=== PATIENT | male | born 1945 | race Caucasian/White ===

== ENCOUNTER 2017-10-05 09:36 | Emergency (ER) | payer MEDICARE ==
[~2017-10-05] VITALS: Ht 188 cm; Wt 131.8 kg
[~2017-10-05 09:36] MED LIST: BAYER CHEWABLE81 MG PO; BUPROPION XL300 MG PO; CITRUCEL500 MG PO; LISINOPRIL10 MG NG; PROTONIX40 MG PO; SYMBICORT 80-10.2 GM INH; TENORMIN25 MG PO; VENTOLIN HFA18 GM INH; ZANTAC150 MG PO
[2017-10-05 09:54] VITALS: Ht 188 cm; Wt 131.8 kg
[2017-10-05] MEDS ORDERED: FAMOTIDINE10 MG PO (09:56)
[2017-10-05] MEDS ORDERED: GLUCOPHAGE1000 MG PO (09:57)
[2017-10-05 10:56] LABS: BASOPHILS 1.3 % (0-2); EOSINOPHILS 2.8 % (0-7); HEMATOCRIT 43.7 % (42.0-54.0); HEMOGLOBIN 14.7 g/dL (13.5-17.5); IMMATURE GRANULOCYTES 1.3 % (0-5); LYMPHOCYTES 29.5 % (15-50); MCH 30.6 pg (26.0-34.0); MCHC 33.6 g/dL (31.0-37.0); MCV 90.9 fL (80.0-100.0); MEAN PLATELET VOLUME 9.6 fL (7.4-10.4); MONOCYTES 8.5 % (2-11); NEUTROPHILS 56.6 % (40-80); PLATELET COUNT 189 10x3/uL (130-400); RBC 4.81 10x6/uL (4.20-6.10); RDW 13.3 % (11.5-14.5); WBC 9.6 10x3/uL (4.8-10.8)
[2017-10-05 11:03] LABS: APTT 24.8 SECONDS (22.8-39.4); INR 1.01 (0.85-1.17); PROTIME 12.9 SECONDS (11.6-15.0)
[2017-10-05 11:04] LABS: D-DIMER-QUANTITATIVE < 0.27 ug/mLFEU (0.20-0.54)
[2017-10-05 11:33] LABS: ALBUMIN 3.8 g/dL (3.4-5.0); ALKALINE PHOSPHATASE 113 U/L (46-116); ALT (SGPT) 39 U/L (10-68); BILIRUBIN - TOTAL 0.67 mg/dL (0.2-1.3); CALC OSMOLALITY 281 mosm/kg (275-300); CALCIUM 9.2 mg/dL (8.5-10.1); CARBON DIOXIDE 25.6 mmol/L (21.0-32.0); CHLORIDE - SERUM 103 mmol/L (98-107); GLUCOSE 174 mg/dL (74-106); POTASSIUM - SERUM 4.4 mmol/L (3.5-5.1); PROTEIN - SERUM 7.1 g/dL (6.4-8.2); SODIUM 139 mmol/L (136-145); UREA NITROGEN 12 mg/dL (7-18); eGFR NON AFRICAN AMERICAN 78 mL/min (90-120)
[2017-10-05 11:45] LABS: CKMB 1.7 U/L (0.0-3.6); CREATINE KINASE 62 UL (21-232); PRO BNP 51 pg/mL (0-125)
[2017-10-05 11:46] LABS: TROPONIN-I < 0.017 ng/mL (0.000-0.060)
[2017-10-05 14:28] VITALS: BP 129/75
[2017-11-14] MEDS ORDERED: ASPIRIN81 MG PO (11:48)
[2017-11-14] MEDS ORDERED: FLOMAX0.4 MG PO (11:48)
== END 2017-10-05 14:28 | disposition home or self-care (01) ==
LOC: D.ER 09:36
PROVIDERS: Family Medicine
DX: S46.912A Strain of unspecified muscle, fascia and tendon at shoulder and upper arm level, left arm, initial encounter (principal); X58.XXXA Exposure to other specified factors, initial encounter; Y93.89 Activity, other specified; Y92.019 Unspecified place in single-family (private) house as the place of occurrence of the external cause; M25.512 Pain in left shoulder; R42 Dizziness and giddiness; F17.200 Nicotine dependence, unspecified, uncomplicated

== ENCOUNTER → 2017-11-14 11:16 | Outpatient (CLI) | payer MEDICARE ==
[~2017-11-14] VITALS: Ht 188 cm; Wt 131.8 kg
--- NOTE | ~2017-11-14 | HEMODYNAMI ---
PATIENT:ABEL MARRERO MEDICAL RECORD: [id number] : 43 LOCATION:[facility] ADMISSION DATE: 11/14/17 Generatedon:11/14/201714:36 Patient name: ABEL MARRERO Patient #: [id number] SSN: DO B: 1945 Date of study: 11/14/2017 Page: Of Hemodynamic Procedure Report Patient Data Patient Demographics Procedure consent was obtained First Name: ABEL Gender: Male Last Name: ELIDA : 1945 Middle Initial: EDWARD Age: 72 year(s) Patient #: [id number] Race: Additional ID: [id number] Contact details Address: [address] [address] State: [place] City: [place] Zip code: [address] Past Medical History Allergies Allergen Reaction Date Comments Reported Penicillins 11/14/2017 Admission Admission Data Admission Date: 11/14/2017 Admission Time: 11:16 Procedure Procedure Types Cath Procedure Diagnostic Procedure LHC LHC w/Coronaries Sedation Charges Moderate Sedation up to 15 minutes Procedure Description Procedure Date Procedure Date: 11/14/2017 Procedure Start Time: 14:23 Procedure End Time: 14:33 Procedure Staff Name Function Johnathan Palomares MD Performing Physician Damaris Cuadra RT Scrub Raffy Hernandez RN Nurse Tata Marion RT Monitor Procedure Data Cath Procedure Fluoroscopy Diagnostic fluoroscopy Total fluoroscopy Time: 2.1 time: 2.1 min min Diagnostic fluoroscopy Total fluoroscopy dose: 872 dose: 872 mGy mGy Contrast Material Contrast Material Type Amount (ml) Isovue 300 62 Entry Location Entry Primary Successful Side Size Upsize Upsize Entry Closure Gilbert ccessful Closure Location (Fr) 1 (Fr) 2 (Fr) Remarks Device Remarks Radial Right 6 Fr Mechanical artery Short Compression Estimated blood loss: 5 ml Diagnostic catheters Device Type Used For End Catheter Placement DIAGNOSTIC Dieter 110cm Multi-vessel 5Fr catheter ([id number]) Angiography Procedure Complications No complications Procedure Medications Medication Administration Route Dosage 0.9% NaCl I.V. 100 ml/hr Oxygen etCO2 Nasal cannula 2 l/min Heparin Flush Bag added to field 2 bags (1000units/500ml NS) Lidocaine 2% added to field 20 Radial Cocktail added to field 1 syringe (Verapomil 2mg/Nitro 400mcg/Heparin 1500units) Versed I.V. 2 mg Fentanyl I.V. 100 mcg Radial Cocktail I.A. 1 syringe (Verapomil 2mg/Nitro 400mcg/Heparin 1500units) Hemodynamics Rest Heart Rate: 90 (bpm) Pressure Samples Time Site Value (mmHg) Purpose Heart Use Rate(bpm) 14:26 LV 112/-10,0 Snapshot 95 14:27 LV 111/-13,-5 Pullback 84 14:27 AO 93/62(75) Pullback 84 Gradients Valve Time Site 1 Site 2 Mean SEP/DFP Peak To Heart Use (mmHg) (sec/min) Peak Rate (mmHg) (bpm) Aortic 14:27 LV AO 14 6 18 84 111/-13,-5 93/62(75) Calculations Valve P-P Mean Valve Index Valve Source Name Gradient Area Flow (cm2) Aortic 18 14 18 14 Snapshots Pre Cath Intra NCS Post Cath Vital Signs Time Heart Resp SPO2 etCO2 NIBP Rhythm Pain Sedation Rate (ipm) (%) (mmHg) (mmHg) Status Level (bpm) 14:07:06 88 30 96 28.6 123/82(96) NSR 0 (11) 10(A) , No pain 14:11:51 86 30 96 29.3 122/81(99) NSR 0 (11) 10(A) , No pain 14:16:50 106 29 95 33.9 Measuring NSR 0 (11) 10(A) , No pain 14:17:41 87 24 96 24.8 123/79(96) NSR 0 (11) 10(A) , No pain 14:22:26 85 28 94 33.9 124/81(99) NSR 0 (11) 9(A) , No pain 14:27:08 91 28 93 31.6 109/72(94) NSR 0 (11) 9(A) , No pain 14:31:49 87 30 95 30.8 115/77(92) NSR 0 (11) 10(A) , No pain Medications Time Medication Route Dose Verified Delivered Reason Notes Effectiveness by by 14:06:43 0.9% NaCl I.V. 100 Raffy Raffy Per ml/hr David Hernandez physician RN RN 14:06:52 Oxygen etCO2 2 l/min Raffy Raffy Per Nasal David Hernandez physician cannula RN RN 14:07:05 Heparin Flush added 2 bags Raffy Raffy used for Bag to Lorigan David procedure (1000units/500ml field RN RN NS) 14:07:15 Lidocaine 2% added 20ml Raffy Raffy for local to vial Lorigan Lorigan anesthetic field RN RN 14:07:27 Radial Cocktail added 1 Raffy Raffy used for (Verapomil to syringe Lorigan Lorigan procedure 2mg/Nitro field RN RN 400mcg/Hepari 14:16:06 Versed I.V. 2 mg Raffy Raffy for sedation David Hernandez RN RN 14:16:17 Fentanyl I.V. 100 mcg Raffy Raffy for sedation David Hernandez RN RN 14:24:02 Radial Cocktail I.A. 1 Raffy Johnathan for (Verapomil syringe David Palomares MD vasodilation 2mg/Nitro RN 400mcg/Hepari Procedure Log Time Note 13:35:11 Raffy Hernandez RN sent for patient. Start room use. 13:56:23 Diagnostic Cath Status : Elective 13:57:42 Time tracking: Regular hours (M-F 7:00 - 5:00) 13:57:56 Plan of Care:Hemodynamics will remain stable., Cardiac rhythm will remain stable., Comfort level will be maintained., Respiratory function will remain adequate., Patient/ family verbilizes understanding of procedure., Procedure tolerated without complication., Recovers from procedure without complications.. 13:59:14 Patient received from Pre/Post Procedure Room to CCL 1 Alert and oriented. Tansferred to table in Supine position. 13:59:34 Warm blankets applied, and alyssa hugger turned on for patient comfort. 13:59:36 Correct patient and procedure confirmed by team. 13:59:41 Signed procedure consent form obtained from patient. 14:00:21 ECG and BP/O2 sat monitors applied to patient. 14:00:24 Vital chart was started 14:02:16 Baseline sample Acquired. 14:03:05 Baseline sample Acquired. 14:03:35 Rhythm: sinus rhythm 14:03:46 Full Disclosure recording started 14:04:13 H&P Date Dictated: 11/14/2017 New H&P dictated by physician.. 14:04:19 Pre-procedure instructions explained to patient. 14:04:21 Pre-op teaching completed and patient verbalized understanding. 14:04:23 Family in waiting room. 14:04:27 Patient NPO since Breakfast. 14:04:33 Patient allergic to Penicillins 14:04:36 Is the patient allergic to Iodine/contrast media? No. 14:04:39 Is patient on blood thinner?No 14:04:41 Patient diabetic? Yes. 14:04:43 If diabetic: On Metformin? Yes 14:04:49 If on Metformin: Last Dose? 11/12/2017 14:04:52 ----Pre-sedation anethsthesia assessment.---- 14:04:55 Previous problem with sedation/anesthesia? No ? 14:04:57 Snore? Yes 14:04:59 Sleep apnea? Yes 14:05:01 Deviated septum? No 14:05:02 Opens mouth fully? Yes 14:05:03 Sticks out tongue? Yes 14:05:07 Airway obstruction? No ? 14:05:14 Dentures? Yes OUT 14:05:20 Pre procedure: right dorsailis pedis pulse 1+ Palpable, but thready & weak; easily obliterated 14:05:26 Patient pain scale 0/10 ?. 14:05:46 IV patent on arrival in left forearm with 0.9% NaCl at [facility]. 14:06:43 0.9% NaCl 100 ml/hr I.V. was administered by Raffy Hernandez RN; Per physician; 14:06:52 Oxygen 2 l/min etCO2 Nasal cannula was administered by Raffy Hernandez RN; Per physician; 14:07:05 Heparin Flush Bag (1000units/500ml NS) 2 bags added to field was administered by Raffy Hernandez RN; used for procedure; 14:07:15 Lidocaine 2% 20ml vial added to field was administered by Raffy Hernandez RN; for local anesthetic; 14:07:27 Radial Cocktail (Verapomil 2mg/Nitro 400mcg/Heparin 1500units) 1 syringe added to field was administered by Raffy Hernandez RN; used for procedure; 14:14:42 Lab results completed and on chart. 14:14:47 Right Radial & Right Groin area was prepped with chlora-prep and draped in sterile fashion 14:14:48 Alarms reviewed by R. N. 14:14:49 Sharps counted by scrub and verified by R.N. 14:14:51 --------ALL STOP TIME OUT------ 14:14:52 Final Timeout: patient, procedure, and site verified with staff and physician. All members of the team are in agreement. 14:14:56 Right Radial & Right Groin site verified by team. 14:14:59 Physical assessment completed. ASA score P 2 - A patient with mild systemic disease as per Johnathan Palomares MD. 14:15:02 Sedation plan: IV Moderate Sedation Medication:Versed, Fentanyl 14:16:06 Versed 2 mg I.V. was administered by Raffy Hernandez RN; for sedation; 14:16:16 Fentanyl 100 mcg I.V. was administered by Raffy Hernandez RN; for sedation; 14:21:58 Procedure started. 14:23:10 Local anesthetic to right radial artery with Lidocaine 2% by Johnathan Palomares MD.INITIAL ACCESS ONLY 14:23:53 A 6 Fr Short sheath was inserted into the Right Radial artery 14:24:02 Radial Cocktail (Verapomil 2mg/Nitro 400mcg/Heparin 1500units) 1 syringe I.A. was administered by Johnathan Palomares MD; for vasodilation; 14:25:03 Use device set Radial Dx or PCI 14:25:08 ACIST Syringe (77381) opened to sterile field. 14:25:09 DIAGNOSTIC WIRE .035 260cm J wire (671519) opened to sterile field. 14:25:09 Bag Decanter () opened to sterile field. 14:25:09 Medline Cath Pack ([id number]) opened to sterile field. 14:25:10 ACIST Manifold (04301) opened to sterile field. 14:25:10 ACIST Hand Control (81321) opened to sterile field. 14:25:11 Tegaderm 4 x 4 (1626W) opened to sterile field. 14:25:12 MBrace Wrist Support ([id number]) opened to sterile field. 14:25:13 SHEATH 6Fr Prelude Radial ([id number]) opened to sterile field. 14:25:18 A DIAGNOSTIC Dieter 110cm 5Fr catheter (337663) was advanced over the wire and used for Multi-vessel Angiography. 14:26:25 LV hemodynamics recorded. 14::29 LV gram done using LLOYD 14::31 Injector settings: Ml/sec: 5, Volume: 15, 14:26:48 EF : 55 % 14:27:34 LCA angiography performed. 14:27:37 Injector settings: Ml/sec: 3, Volume: 6, 14:29:31 RCA angiography performed. 14::37 Injector settings: Ml/sec: 3, Volume: 6, 14:30:59 Catheter removed. 14:31:35 TR BAND Standard ([id number]) opened to sterile field. 14:31:52 Sheath removed intact; hemostasis achieved with Mechanical Compression to the Right Radial artery. 14:31:55 Procedure ended.(Physican Out) 14:32:14 Fluoroscopy time 02.10 minutes. 14:32:19 Fluoroscopy dose: 872 mGy 14:32:19 Flurop Dose total: 872 14:32:23 Contrast amount:Isovue 300 62ml. 14:32:25 Sharps counted by scrub and verified by R.N. 14:32:28 TR band inflated with 12cc of air. 14:32:30 Insertion/operative site no bleeding no hematoma. 14:32:34 Post right radial artery:stable 14:32:35 Post Procedure Pulses reassessed and unchanged 14:32:38 Post procedure rhythm: unchanged. 14:32:41 Estimated blood loss: 5 ml 14:32:43 Patient needs reinforcement of post procedure teaching. 14:32:43 Post procedure instruction explained to patient.Patient verbalizes understanding. 14:32:58 Procedure type changed to Cath procedure, Diagnostic procedure, LHC, LHC w/Coronaries, Sedation Charges, Moderate Sedation up to 15 minutes 14:33:01 Procedure and supply charges have been captured, reviewed, submitted and are correct. 14:33:09 Procedure Complication : No complications 14:33:12 See physician's report for complete and final results. 14:33:12 Vital chart was stopped 14:33:32 Report given to Pre/Post Procedure Room. 14:33:38 Patient transfered to Pre/Post Procedure Room with Stretcher. 14:33:41 Full Disclosure recording stopped 14:33:41 Procedure ended. 14:33:44 End room use (Document Last) Device Usage Item Name Manufacture Quantity Catalog Number Hospital Part Current M inimal Lot# / Charge Number Stock Stock Serial# Code ACIST Syringe Acist 1 55818 998981 993618 187887 2 0 (10087) [employer] Medline Cath Cardinal 1 [id number] 542133 79028 967581 5 Pack Health ([id number]) Bag Decanter Microtek 1 2001S 671261 96252 490223 5 (2001S) Medical Inc. DIAGNOSTIC WIRE [place] 1 063542 896610 244733 605924 3 0 .035 260cm J wire (871992) ACIST Hand Acist 1 34084 328926 399228 306291 5 Control (49497) Medical Systems Inc ACIST Manifold Acist 1 57440 349219 103229 814045 5 (92379) Medical Systems Inc Tegaderm 4 x 4 3M 1 1626W 281479 722776 997190 5 (1626W) MBrace Wrist Advanced 1 140-0250-00 000315 47065 466694 5 Support Vascular ([id number]) Dynamics SHEATH 6Fr Merit 1 [id number] 023938 485367 601787 5 Prelude Radial Medical ([id number]) DIAGNOSTIC Terumo 1 87-6125 467573 289303 079965 5 Dieter 110cm 5Fr catheter (483545) TR BAND Terumo 1 [id number] 894829 548248 735758 4 0 Standard ([id number]) Signature Audit [place] Stage Time Signature Unsigned Intra-Procedure 11/14/2017 Tata Marion 2:36:10 PM RT(R) Signatures Monitor : Tata Marion RT Signature : Date : Time : [facility] [address] [place] [address]
[~2017-11-14 11:16] MED LIST changes: +ASPIRIN81 MG PO; +FAMOTIDINE10 MG PO; +FLOMAX0.4 MG PO; +GLUCOPHAGE1000 MG PO
[2017-11-14 11:59] VITALS: BP 163/95; Ht 188 cm; Wt 131.8 kg
[2017-11-14 12:02] LABS: BASOPHILS 1.1 % (0-2); EOSINOPHILS 3.8 % (0-7); HEMATOCRIT 44.9 % (42.0-54.0); HEMOGLOBIN 15.4 g/dL (13.5-17.5); IMMATURE GRANULOCYTES 1.1 % (0-5); LYMPHOCYTES 28.9 % (15-50); MCH 30.8 pg (26.0-34.0); MCHC 34.3 g/dL (31.0-37.0); MCV 89.8 fL (80.0-100.0); MEAN PLATELET VOLUME 9.6 fL (7.4-10.4); MONOCYTES 7.9 % (2-11); NEUTROPHILS 57.2 % (40-80); PLATELET COUNT 193 10x3/uL (130-400); RDW 13.4 % (11.5-14.5); WBC 10.1 10x3/uL (4.8-10.8)
[2017-11-14 12:12] LABS: CALC OSMOLALITY 279 mosm/kg (275-300); CALCIUM 8.2 mg/dL (8.5-10.1); CARBON DIOXIDE 28.2 mmol/L (21.0-32.0); CHLORIDE - SERUM 102 mmol/L (98-107); CREATININE - SERUM 0.9 mg/dL (0.6-1.3); GLUCOSE 148 mg/dL (74-106); SODIUM 139 mmol/L (136-145); UREA NITROGEN 10 mg/dL (7-18); eGFR NON AFRICAN AMERICAN 88 mL/min (90-120)
== END | disposition home or self-care (01) ==
LOC: D.CATH 11:16
PROVIDERS: Internal Medicine Cardiovascular Disease
DX: I25.110 Atherosclerotic heart disease of native coronary artery with unstable angina pectoris (principal)

== ENCOUNTER 2019-01-24 07:27 | Inpatient (IN) | payer MEDICARE ==
[2019-01-24] VITALS (44 sets, daily range): BP systolic 85–138; BP diastolic 47–621; BMI 36.0
[~2019-01-24] VITALS: Ht 188 cm; Wt 127.1 kg
--- NOTE | ~2019-01-24 | HEMODYNAMI ---
PATIENT:ABEL MARRERO MEDICAL RECORD: [id number] : 43 [id number] ADMISSION DATE: 01/24/19 Generatedon:01/24/20199:28 Patient name: ABEL MARRERO Patient #: [id number] SSN: [id number] : 1945 Date of study: 01/24/2019 Page: Of Hemodynamic Procedure Report Patient Data Patient Demographics Procedure consent was obtained First Name: ABEL Gender: Male Last Name: ELIDA : 1945 Middle Initial: EDWARD Age: 73 year(s) Patient #: [id number] Race: SSN: [id number] Additional ID: [id number] Contact details Address: [address] [place] [address] State: [place] City: [place] Zip code: [address] Past Medical History Allergies Allergen Reaction Date Comments Reported Penicillins 11/14/2017 Admission Admission Data Admission Date: 01/24/2019 Admission Time: 7:40 Arrival Date: 01/24/2019 Arrival Time: 7:27 Admit Source: Emergency Insurance Payor: Private department health insurance, Medicare Room #: D.CV05 [facility] #: [id number] Height (in.): 74.02 BSA: 2.51 (m2) Height (cm.): 188 BMI: 35.93 (kg/m2) Weight (lbs.): 279.99 Weight (kg.): 127 Lab Results Lab Result Date: 01/24/2019 Lab Result Time: 0:00 Biochemistry Name Units Result Min Max BUN mg/dl 17 --(---*)-- 7 18 Creatinine mg/dl 1.2 --(---*)-- 0.6 1.3 eGFR ml/min 63 *-(----)-- 90 120 NONAFRICAN Troponin l ng/ml 77.941 --(----)-* 0 0.06 CBC Name Units Result Min Max Hemoglobin g/dl 15.4 --(-*--)-- 13.5 17.5 Procedure Procedure Types Cath Procedure Diagnostic Procedure C [facility] w/Coronaries Temporary Pacemaker Intra-Aortic Balloon Pump Sedation Charges Moderate Sedation up to 45 minutes PCI Procedure AMI/SVG/PRINT BUYER PTCA or Stent AMI-BMS/BHARTI Initial Coronary Thrombectomy Initial Procedure Description Procedure Date Procedure Date: 01/24/2019 Procedure Start Time: 8:02 Procedure End Time: 9:02 Procedure Staff Name Function Salvador Monique MD Performing Physician Tata Marion RT Monitor Issac Anthony RT Scrub Kary Puckett RT Scrub Dianne Caballero RN Nurse Procedure Data Cath Procedure Fluoroscopy Diagnostic fluoroscopy Total fluoroscopy Time: 14 time: 14 min min Diagnostic fluoroscopy Total fluoroscopy dose: dose: 1958 mGy 1958 mGy Contrast Material Contrast Material Type Amount (ml) Isovue 300 196 Entry Location Entry Primary Successful Side Size Upsize Upsize Entry Closure Gilbert ccessful Closure Location (Fr) 1 (Fr) 2 (Fr) Remarks Device Remarks Radial Right 6 Fr Mechanical artery Short Compression Femoral Right 6 Fr Sheath vein Short sutured in place Femoral Right 7 Fr 8 Fr Sheath artery Short sutured in place Estimated blood loss: 5 ml Diagnostic catheters Device Type Used For End Catheter Placement DIAGNOSTIC Mystic 110cm 5 Multi-vessel Fr catheter ([id number]) Angiography Procedure Complications No complications Procedure Medications Medication Administration Route Dosage 0.9% NaCl I.V. 100 ml/hr Oxygen etCO2 Nasal cannula 2 l/min Lidocaine 2% added to field 20 Heparin Flush Bag added to field 2 bags (1000units/500ml NS) Benadryl I.V. 50 mg Versed I.V. 2 mg Fentanyl I.V. 100 mcg Radial Cocktail added to field 1 syringe (Verapamil 2mg/Nitro 400mcg/Heparin 1500units) Heparin Bolus I.V. 5000 units Integrilin (Bolus I.V. 11.3 ml 2mg/ml) Integrilin (Bolus I.V. 11.3 ml 2mg/ml) Fentanyl I.V. 50 mcg Integrilin Drip I.V. drip 100 ml/hr (75mg/100ml) Integrilin (Bolus wasted 7.4 ml 2mg/ml) Nitroglycerin IC/IA I.C. 200 mcg Fentanyl I.V. 50 mcg Versed I.V. 1 mg Heparin Drip I.V. drip 1000 units/hr (96929hoalh/250 D5W) Plavix P.O. 600 mg Mechanical Ventricular Support IABP: Inserted after PCI has begun Hemodynamics Rest BSA: 2.51 (m2) HGB: 15.4 (g/dl) O2 Consumption: Estimated: 317.76 (ml/min) O2 Co nsumption indexed: Estimated:126.6 (ml/min/m) Heart Rate: 100 (bpm) Pressure Samples Time Site Value (mmHg) Purpose Heart Use Rate(bpm) 8:04 LV 62/38,44 Snapshot 87 Snapshots Pre Cath Intra NCS Post Cath Vital Signs Time Heart Resp SPO2 etCO2 NIBP Rhythm Pain Status Sedation Rate (ipm) (%) (mmHg) (mmHg) Level (bpm) 7:52:24 94 19 98 22 102/48(88) NSR w/ ST 2 (11) , 10(A) Elevation Uncomfortable 7:56:36 93 16 98 21.7 94/66(77) NSR w/ ST 2 (11) , 10(A) Elevation Uncomfortable 8:00:50 89 18 97 25.5 89/57(67) NSR w/ ST 0 (11) , No 9(A) Elevation pain 8:05:02 87 16 98 27.8 86/58(71) NSR w/ ST 0 (11) , No 9(A) Elevation pain 8:09:16 88 18 97 13.5 79/49(61) NSR w/ ST 0 (11) , No 9(A) Elevation pain 8:13:26 86 17 98 22.5 76/49(60) NSR w/ ST 0 (11) , No 9(A) Elevation pain 8:17:38 94 16 97 23.3 72/43(50) NSR w/ ST 3 (11) , 10(A) Elevation Tolerable 8:21:44 84 16 98 13.5 75/50(61) NSR w/ ST 0 (11) , No 9(A) Elevation pain 8:25:52 82 18 97 28.5 76/54(64) NSR w/ ST 0 (11) , No 9(A) Elevation pain 8:30:00 83 18 96 15 78/49(62) NSR w/ ST 0 (11) , No 9(A) Elevation pain 8:34:07 86 18 98 14.2 75/53(59) NSR w/ ST 4 (11) , 10(A) Elevation Distressing 8:38:15 83 18 97 14.2 82/53(67) NSR w/ ST 0 (11) , No 9(A) Elevation pain 8:42:27 80 16 98 16 78/49(63) NSR w/ ST 0 (11) , No 9(A) Elevation pain 8:46:37 81 30 96 13.5 79/50(62) NSR w/ ST 0 (11) , No 9(A) Elevation pain 8:50:47 79 30 98 5.2 81/50(62) NSR w/ ST 0 (11) , No 9(A) Elevation pain 8:55:01 81 34 96 13.5 80/42(50) NSR w/ ST 0 (11) , No 10(A) Elevation pain 8:59:10 79 16 96 27 87/49(61) NSR w/ ST 0 (11) , No 10(A) Elevation pain 9:03:27 80 31 96 18 73/42(52) NSR w/ ST 0 (11) , No 10(A) Elevation pain 9:07:32 77 29 96 27 76/52(65) NSR w/ ST 0 (11) , No 10(A) Elevation pain 9:11:47 76 32 96 16.5 66/33(49) NSR w/ ST 0 (11) , No 10(A) Elevation pain 9:16:45 100 27 95 12.7 Measuring NSR w/ ST 0 (11) , No 10(A) Elevation pain 9:16:47 100 24 94 12 61/44(57) NSR w/ ST 0 (11) , No 10(A) Elevation pain 9:20:53 82 35 92 11.2 78/42(52) NSR w/ ST 0 (11) , No 10(A) Elevation pain 9:25:01 91 0 74/54(63) NSR w/ ST 0 (11) , No 10(A) Elevation pain Medications Time Medication Route Dose Verified Delivered Reason Not es Effectiveness by by 7:56:09 0.9% NaCl I.V. 100 Salvador Dianne used for ml/hr Kayden Caballero county agent 7:56:17 Oxygen etCO2 2 l/min Salvador Dianne used for Nasal Kayden Caballero procedure cannula RN 7:56:22 Lidocaine 2% added 20ml Salvador Franco for local to vial Kayden Monique MD anesthetic field 7:56:27 Heparin Flush added 2 bags Salvador Franco used for Bag to Kayden Monique MD procedure (1000units/500ml field NS) 7:56:31 Benadryl I.V. 50 mg Salvador Dianne used for Kayden Caballero county agent 7:56:39 Versed I.V. 2 mg Salvador Dianne for sedation Kayden Caballero RN 7:56:44 Fentanyl I.V. 100 mcg Salvador Dianne for sedation Kayden Caballero RN 7:58:00 Radial Cocktail added 1 Salvador Franco used for (Verapamil to syringe Kayden Monique MD procedure 2mg/Nitro field 400mcg/Heparin 1500units) 8:06:03 Integrilin I.V. 11.3 ml Salvador Dianne for (Bolus 2mg/ml) Kayden Caballero antiplatelet RN therapy 8:09:50 Heparin Bolus I.V. 5000 Salvador Dianne for marino ified units Kayden Caballero anticoagulation with Dr. NABEEL Monique 8:10:16 Integrilin I.V. 11.3 ml Salvador Dianne for (Bolus 2mg/ml) Kayden Caballero antiplatelet RN therapy 8:10:41 Integrilin wasted 7.4 ml Salvador Dianne for (Bolus 2mg/ml) Kayden Caballero antiplatelet RN therapy 8:18:10 Fentanyl I.V. 50 mcg Salvador Dianne for sedation aKyden Caballero RN 8:28:56 Nitroglycerin I.C. 200 mcg Salvador Salvador for IC/IA Kayden Monique MD vasodilation 8:32:14 Integrilin Drip I.V. 100 Salvador Dianne for (75mg/100ml) drip ml/hr Kayden Caballero antiplatelet RN therapy 8:36:01 Fentanyl I.V. 50 mcg Salvador Dianne for sedation Kayden Caballero RN 8:36:19 Versed I.V. 1 mg Salvador Dianne for sedation Kayden Caballero RN 8:49:01 Heparin Drip I.V. 1000 Salvador jorge marino ified (89814omzmc/250 drip units/hr Kayden Caballero anticoagulation with Dr. Frank) NABEEL Monique 8:54:40 Plavix P.O. 600 mg Salvador Dean for Kayden Caballero antiplatelet RN therapy Procedure Log Time Note 7:40:38 Dianne Caballero RN sent for patient. Start room use. 7:50:39 Time tracking: Regular hours (M-F 7:00 - 5:00) 7:50:43 Plan of Care:Hemodynamics will remain stable., Cardiac rhythm will remain stable., Comfort level will be maintained., Respiratory function will remain adequate., Patient/ family verbilizes understanding of procedure., Procedure tolerated without complication., Recovers from procedure without complications.. 7:51:00 Risk of Mortality: 27.5 7:51:00 Risk of SOFIA: 22.0 7:51:00 Risk of blood transfusion: 16.6 7:51:00 Patient received from ED to CCL 1 Alert and oriented. Tansferred to table in Supine position. 7:51:02 Signed procedure consent form obtained from patient. 7:51:03 Warm blankets applied, and alyssa hugger turned on for patient comfort. 7:51:04 Correct patient and procedure confirmed by team. 7:51:04 ECG and BP/O2 sat monitors applied to patient. 7:51:05 Vital chart was started 7:51:08 Baseline sample Acquired. 7:51:15 Full Disclosure recording started 7:51:20 H&P Date Dictated: 01/24/2019 ER History on chart., New H&P dictated by physician.. 7:51:22 Pre-procedure instructions explained to patient. 7:51:22 Pre-op teaching completed and patient verbalized understanding. 7:51:24 Family in waiting room. 7:51:31 Patient NPO since Midnight. 7:51:35 Is the patient allergic to Iodine/contrast media? No. 7:51:36 Was the patient premedicated? No 7:51:38 Is patient on blood thinner?No 7:51:56 Patient diabetic? Yes. 7:51:59 If diabetic: On Metformin? Yes 7:52:03 If on Metformin: Last Dose? 01/23/2019 7:52:06 Previous problem with sedation/anesthesia? No ? 7:52:09 Snore? Yes 7:52:09 Sleep apnea? Yes 7:52:10 Deviated septum? No 7:52:13 Opens mouth fully? Yes 7:52:14 Sticks out tongue? Yes 7:52:18 Airway obstruction? No ? 7:52:22 Dentures? Yes out 7:52:26 Pre procedure: right dorsailis pedis pulse 2+ Normal; easily identifiable; not easily obliterated 7:52:28 Pre procedure: left dorsailis pedis pulse 2+ Normal; easily identifiable; not easily obliterated 7:52:30 Patient pain scale 0/10 ?. 7:52:40 IV patent on arrival in right antecubital with 0.9% NaCl at [facility]. 7:52:46 Lab results pending. 7:52:52 Right Radial & Right Groin area was prepped with chlora-prep and draped in sterile fashion 7:52:53 Alarms reviewed by R. N. 7:52:53 Sharps counted by scrub and verified by R.N. 7:52:56 Physician arrived 7:52:56 --------ALL STOP TIME OUT------ 7:52:57 Final Timeout: patient, procedure, and site verified with staff and physician. All members of the team are in agreement. 7:52:58 2) 60-89 Mildly reduced kidney function, and other findings (as for stage 1) point to kidney disease. 7:52:58 Maximum allowable contrast dose (3.7 X eGFR X 0.75)175 ml. 7:53:03 Right Radial & Right Groin site verified by team. 7:53:20 Fire Safety Assessment: A--An alcohol-based skin anteseptic being used preoperatively., C--Open oxygen or nitrous oxide is being used., D--An ESU, laser, or fiber-optic light is being used. 7:53:33 Physical assessment completed. ASA score P 3 - A patient with severe systemic disease as per Salvador Monique MD. 7:53:35 MBrace Wrist Support ([id number]) opened to sterile field. 7:53:42 Sedation plan: IV Moderate Sedation Medication:Versed, Fentanyl 7:53:51 Use device set Femoral Dx 7:53:52 ACIST Syringe (28746) opened to sterile field. 7:53:52 Bag Decanter (2001S) opened to sterile field. 7:53:52 Medline Cath Pack ([id number]) opened to sterile field. 7:53:54 ACIST Hand Control (57212) opened to sterile field. 7:53:54 ACIST Manifold (94426) opened to sterile field. 7:53:55 Tegaderm 4 x 4 (1626W) opened to sterile field. 7:53:57 EMERALD Guide Wire (551-793) opened to sterile field. 7:54:21 ACC Patient presents with STEMI CCS Anginal Class 4--Inability to carry out any physical activity w/o angina. Angina may occur at rest. 7:54:27 Procedure Status Emergent Heart Cath (AMI). 7:55:04 IV Extension Set opened to sterile field. 7:56:09 0.9% NaCl 100 ml/hr I.V. was administered by Dianne Caballero RN; used for procedure; Verbal order read back and verified. 7:56:17 Oxygen 2 l/min etCO2 Nasal cannula was administered by Dianne Caballero RN; used for procedure; Verbal order read back and verified. 7:56:22 Lidocaine 2% 20ml vial added to field was administered by Salvador Monique MD; for local anesthetic; Verbal order read back and verified. 7:56:27 Heparin Flush Bag (1000units/500ml NS) 2 bags added to field was administered by Salvador Monique MD; used for procedure; Verbal order read back and verified. 7:56:31 Benadryl 50 mg I.V. was administered by Dianne Caballero RN; used for procedure; Verbal order read back and verified. 7:56:39 Versed 2 mg I.V. was administered by Dianne Caballero RN; for sedation; Verbal order read back and verified. 7:56:44 Fentanyl 100 mcg I.V. was administered by Dianne Caballero RN; for sedation; Verbal order read back and verified. 7:56:55 Quick Combo opened to sterile field. 7:57:00 Quick combo pads placed on patients chest and back. 7:58:00 Radial Cocktail (Verapamil 2mg/Nitro 400mcg/Heparin 1500units) 1 syringe added to field was administered by Salvador Monique MD; used for procedure; Verbal order read back and verified. 8:02:39 Procedure started. 8:02:44 Local anesthetic to right radial artery with Lidocaine 2% by Salvador Monique MD.INITIAL ACCESS ONLY 8:02:58 A 6 Fr Short sheath was inserted into the Right Radial artery 8:03:57 SHEATH 6FR RAIN (9267213) opened to sterile field. 8:04:06 A DIAGNOSTIC Mystic 110cm 5 Fr catheter (598801) was advanced over the wire and used for Multi-vessel Angiography. 8:04:45 LV hemodynamics recorded. 8:04:46 LV gram done using LLOYD 8:04:48 Injector settings: Ml/sec: 5, Volume: 15, 8:05:15 EF : 20 % 8:06:03 Integrilin (Bolus 2mg/ml) 11.3 ml I.V. was administered by Dianne Caballero RN; for antiplatelet therapy; Verbal order read back and verified. 8:06:17 INFLATOR Merit BasixCompak (RQ3129) opened to sterile field. 8:06:39 CHOICE PT Extra Support 182cm wire (3247392S6) opened to sterile field. 8:07:06 GUIDE 6FR XBLAD 3.5 catheter (29809837) opened to sterile field. 8:07:18 LCA angiography performed. 8:07:20 Injector settings: Ml/sec: 3, Volume: 6, 8:07:30 RCA angiography performed. 8:07:32 Injector settings: Ml/sec: 3, Volume: 6, 8:07:36 Catheter removed. 8:07:37 ACCDominant side:Right 8:08:06 Pre PCI Site: [place] pLAD has 100% stenosis. 8:08:09 ACC Pre-intervention MARKO Flow is 0. 8:08:15 6 Fr xblad 3.5 guide catheter was inserted over the wire 8:08:21 choicept wire advanced. 8:09:42 Inflate balloon Inflation number: 1 A EUPHORA 3.5 x 15 Balloon ([id number]) was prepped and advanced across the Prox LAD 100, then inflated to 9 NAYE for 0:10 (min:sec) . 8:09:49 Inflation number: 2 The EUPHORA 3.5 x 15 Balloon ([id number]) was reinflated across the Prox LAD , to 11 NAYE for 0:10 (min:sec) . 8:09:50 Heparin Bolus 5000 units I.V. was administered by Dianne Caballero RN; for anticoagulation; verified with Dr. Monique Verbal order read back and verified. 8:10:01 Inflation number: 3 The EUPHORA 3.5 x 15 Balloon ([id number]) was reinflated across the Prox LAD , to 13 NAYE for 0:10 (min:sec) . 8:10:16 Integrilin (Bolus 2mg/ml) 11.3 ml I.V. was administered by Dianne Caballero RN; for antiplatelet therapy; Verbal order read back and verified. 8:10:41 Integrilin (Bolus 2mg/ml) 7.4 ml wasted was administered by Dianne Caballero RN; for antiplatelet therapy; Verbal order read back and verified. 8:10:49 Balloon removed over the wire. 8:15:10 SHEATH 6FR [place]oto (GDZ434) opened to sterile field. 8:15:32 Local anesthetic to right femoral artery with Lidocaine 2% by Salvador Monique MD.ADDITIONAL ACCESS 8:16:10 A 6 Fr Short sheath was inserted into the Right Femoral vein 8:16:29 Temporary pacer inserted 8:18:10 Fentanyl 50 mcg I.V. was administered by Dianne Caballero RN; for sedation; Verbal order read back and verified. 8:19:21 Temporary pacer turned on with the following settings: Rate 50, MA 5, Mode: Demand. 8:19:58 ANGIOJET 4Fr XMI Catheter (572136762) opened to sterile field. 8:21:30 5Fr J Tip Temporary Pacing Catheter ([id number]) opened to sterile field. 8:22:38 ACT drawn and resulted at 308 seconds. (normal therapeutic range 180-240 seconds). 8:23:14 Wire removed. 8:23:22 choice pt 300 wire advanced. 8:23:37 Angiojet inserted into the LAD. 8:26:25 Angiojet catheter removed over the wire. 8:27:31 IABP 40cm balloon catheter ([id number]) opened to sterile field. 8:28:56 Nitroglycerin IC/IA 200 mcg I.C. was administered by Salvador Monique MD; for vasodilation; Verbal order read back and verified. 8:29:48 Place stent Inflation Number: 1 A INTEGRITY RX 3.5 x 30 stent ([id number]) was prepped and advanced across the Prox LAD1 100. The stent was deployed at 15 NAYE for 0:10 (min:sec) 0. 8:30:39 Stent catheter was removed intact over wire. 8:30:45 Wire removed. 8:30:48 Guide catheter removed. 8:31:05 GUIDE 6FR AR 2.0 catheter ([id number]) opened to sterile field. 8:31:16 ACC Post-intervention MARKO Flow is 2. 8:31:25 Post PCI Site: [place] pLAD has 0% stenosis. 8:31:30 6 Fr ar 2 guide catheter was inserted over the wire 8:32:14 Integrilin Drip (75mg/100ml) 100 ml/hr I.V. drip was administered by Dianne Caballero RN; for antiplatelet therapy; Verbal order read back and verified. 8:32:46 choice pt wire advanced. 8:34:20 Wire removed. 8:34:21 Guide catheter removed. 8:34:42 SHEATH 7FR [place] (YOJ964) opened to sterile field. 8:35:24 GUIDE 7FR HS II catheter (FV0UWMS) opened to sterile field. 8:35:58 ZEPHYR REGULAR TR BAND (600024) opened to sterile field. 8:36:01 Fentanyl 50 mcg I.V. was administered by Dianne Caballero RN; for sedation; Verbal order read back and verified. 8:36:19 Versed 1 mg I.V. was administered by Dianne Caballero RN; for sedation; Verbal order read back and verified. 8:36:59 A 7 Fr Short sheath was inserted into the Right Femoral artery 8:37:11 7 Fr hs 2 guide catheter was inserted over the wire 8:38:57 choice pt 300 wire advanced. 8:38:59 Wire advanced across lesion. 8:40:05 CHOICE PT Extra Support J 300cm guide wire (8708235Y6) opened to sterile field. 8:40:05 CHOICE PT Extra Support 182cm wire (3310440K5) opened to sterile field. 8:41:00 choice pt 300 wire exchanged for choice pt 182 8:41:55 Pre PCI Site: [place] dRCA has 95% stenosis. 8:41:55 ACC Pre-intervention MARKO Flow is 3. 8:41:56 Place stent Inflation Number: 1 A INTEGRITY RX 4.0 x 30 stent ([id number]) was prepped and advanced across the Dist RCA 95. The stent was deployed at 17 NAYE for 0:10 (min:sec) 0. 8:42:32 ACC Post-intervention MARKO Flow is 3. 8:42:32 Post PCI Site: [place] dRCA has 0% stenosis. 8:42:33 Stent catheter was removed intact over wire. 8:42:34 Wire removed. 8:42:34 Guide catheter removed. 8:43:42 Temporary pacer removed 8:47:[address] [place] (276920) opened to sterile field. 8:48:02 Sheath upsized to a 8 Fr. 8:48:36 40cc IABP inserted into the RFA . 8:48:41 Augmentation: 1:1 per physician. 8:49:01 Heparin Drip (90733kqaxk/250 D5W) 1000 units/hr I.V. drip was administered by Dianne Caballero RN; for anticoagulation; verified with Dr. Monique Verbal order read back and verified. 8:54:29 Procedure ended.(Physican Out) 8:54:40 Plavix 600 mg P.O. was administered by Dianne Caballero RN; for antiplatelet therapy; Verbal order read back and verified. 8:54:55 Sheath removed intact; hemostasis achieved with Mechanical Compression to the Right Radial artery. 8:56:10 Sheath removed intact; hemostasis achieved with Sheath sutured in place to the Right Femoral vein. 8:56:15 Sheath removed intact; hemostasis achieved with Sheath sutured in place to the Right Femoral artery. 8:56:22 Fluoroscopy time 14.00 minutes. 8:56:27 Flurop Dose total: 1957 8:56:27 Fluoroscopy dose: 1958 mGy 8:56:38 Dose Area Product 21780 mGy/cm. 8:57:03 Contrast amount:Isovue 300 196ml. 8:57:09 Sharps counted by scrub and verified by R.N. 8:57:12 [place] band inflated with 10cc of air. 8:57:15 Insertion/operative site no bleeding no hematoma. 8:59:32 Post Procedure Pulses reassessed and unchanged 8:59:48 Post procedure rhythm: unchanged. 8:59:51 Estimated blood loss: 5 ml 8:59:54 Post procedure instruction explained to patient.Patient verbalizes understanding. 8:59:54 Patient needs reinforcement of post procedure teaching. 9:02:08 Procedure type changed to Cath procedure, Diagnostic procedure, LHC, [facility] w/Coronaries, Temporary Pacemaker, Intra-Aortic Balloon Pump, Sedation Charges, Moderate Sedation up to 45 minutes, PCI procedure, AMI/SVG/PRINT BUYER PTCA or Stent, AMI-BMS/BHARTI Initial, Coronary Thrombectomy Initial 9:02:10 Procedure and supply charges have been captured, reviewed, submitted and are correct. 9:02:15 Procedure Complication : No complications 9:02:29 [facility] Findings: MVD- PCI performed (see procedure note) 9:02:31 Operative report dictated upon procedure completion. 9:02:31 See physician's report for complete and final results. 9:02:37 Report given to CVICU. 9:02:40 Patient transfered to CVICU with Stretcher. 9:02:42 Procedure ended. 9:02:42 Full Disclosure recording stopped 9:02:50 ACC-PCI Only Patient was given prescriptions, or instructed by Salvador Monique MD to start/continue the following medications upon discharge: Plavix 9:02:52 End room use (Document Last) 9:03:10 Diagnostic Cath Status : Emergency 9:04:27 Admit Source: Emergency department 9:04:33 Arrival Date: 01/24/2019 7:27:00 AM 9:05:00 Insurance Payor : Private health insurance, Medicare 9:06:22 Patient Height : 74.02 inches 9:06:29 Patient Weight : 279.99 lbs 9:07:13 Lab Result : BUN 17 mg/dl 9:07:13 Lab Result : Creatinine 1.2 mg/dl 9:07:13 Lab Result : Troponin l 77.941 ng/ml 9:07:13 Lab Result : eGFR NONAFRICAN 63 ml/min 9:07:13 Lab Result : Hemoglobin 15.4 g/dl 9:09:26 IABP : Inserted after PCI has begun 9:11:36 2-0 [place] 685H opened to sterile field. 9:11:37 2-0 [place] 685H opened to sterile field. 9:11:38 2-0 [place] 685H opened to sterile field. 9:28:41 Vital chart was stopped Intervention Summary Intervention Notes Time ActionType Lesion and Equipment Action# Pressure Duration Attributes Used 8:09:42 Inflate Prox LAD EUPHORA 3.5 1 9 00:10 balloon x 15 Balloon ([id number]) 8:09:49 Reinflate Prox LAD EUPHORA 3.5 2 11 00:10 balloon x 15 Balloon ([id number]) 8:10:01 Reinflate Prox LAD EUPHORA 3.5 3 13 00:10 balloon x 15 Balloon ([id number]) 8:29:48 Place stent Prox LAD1 INTEGRITY RX 1 15 00:10 3.5 x 30 stent ([id number]) 8:41:56 Place stent Dist RCA INTEGRITY RX 1 17 00:10 4.0 x 30 stent ([id number]) Device Usage Item Name Manufacture Quantity Catalog Number [facility] Minimal Lot# / Charge Number Stock Stock Serial# Code ACIST Syringe Acist 1 06476 076651 021848 51169 9 20 (43321) Medical Systems Inc Bag Decanter Microtek 1 2001S 668939 25247 66163 7 5 (2001S) Medical Inc. Medline Cath Medline 1 [id number] 575792 24407 56851 3 5 Pack ([id number]) ACIST Hand Acist 1 26913 852801 474314 16163 9 5 Control (51027) Medical Systems Inc ACIST Manifold Acist 1 72556 394626 820047 15681 6 5 (85267) Medical Systems Inc Tegaderm 4 x 4 3M 1 1626W 251294 547940 10064 8 5 (1626W) EMERALD Guide Cardinal 1 502-455 360193 916901 81173 0 5 Wire (502455) Health IV Extension Hospira 1 12895-94 987717 51975 46380 7 5 Set Quick Combo SHINE Medical Technologies Systems 1 98787-846848 057306 982237 81970 0 5 SHEATH 6FR RAIN Cardinal 1 4779474 462741 2500595 17805 5 5 (0343885) Health DIAGNOSTIC Terumo 1 40-6645 192465 224492 32836 7 5 Mystic 110cm 5 Fr catheter (213887) INFLATOR Merit Merit 1 GL3155 229300 213004 60809 5 15 Reveal Technology (UF9100) CHOICE PT Extra Paguate 2 [id number] 088423 436285 94376 9 5 Support 182cm Scientific wire ([id number]) GUIDE 6FR XBLAD Cardinal 1 [id number] 571387 071669 76047 8 10 3.5 catheter Health (22651226) EUPHORA 3.5 x Medtronic 1 [id number] 192080 800128 37763 3 5 [id number] 15 Balloon ([id number]) SHEATH 6FR Terumo 1 ITI719 232227 507306 50883 7 40 [place] (ZEE891) ANGIOJET 4Fr HunterOn 1 595629-790 032690 342716 34594 1 1 Uscreen.tvI [employer] (121503832) 5Fr J Tip Whitney 1 [id number] 296822 46860 46689 9 2 Temporary Lifesciences Pacing Catheter ([id number]) IABP 40cm [facility] 1 [id number] 687340 35189 6 1 balloon [facility] catheter ([id number]) ([id number]) INTEGRITY RX Medtronic 1 [id number] 532147 18622 2 5 [id number] 3.5 x 30 stent ([id number]) GUIDE 6FR AR Medtronic 1 [id number] 735090 72619 11268 3 1 2.0 catheter ([id number]) SHEATH 7FR Terumo 1 [id number] 072929 758047 34509 6 5 Desoto ([id number]) GUIDE 7FR HS II Medtronic 1 [id number] 930009 175179 52201 3 0 catheter ([id number]) ZEPHYR REGULAR Cardinal 1 000526 708938 9810144 70093 0 5 TR [facility] ([id number]) INTEGRITY RX Medtronic 1 [id number] 888775 846282 09929 3 5 [id number] 4.0 x 30 stent ([id number]) SHEATH 8FR [facility] 1 [id number] 291982 045047 70353 8 5 Adrian ([id number]) 2-0 Silk 685H Ethicon 3 685H 833323 12513 71767 8 5 CHOICE PT Extra Paguate 1 [id number] 479080 952425 54642 8 5 Support J 300cm Scientific guide wire ([id number]) MBrace Wrist Advanced 1 [id number] 475769 20422 55036 3 5 Support Vascular ([id number]) Dynamics Signature Audit Allen Stage Time Signature Unsigned Intra-Procedure 01/24/2019 Tata Marion RT(R) 9:26:43 AM Intra-Procedure 01/24/2019 Dianne Caballero RN 9:27:18 AM Intra-Procedure 01/24/2019 Salvador Monique MD 9:28:38 AM [facility] [address] [place] [address]
--- NOTE | 2019-01-24 07:27 | NUR ---
PT TO TIMBER INSPECTOR, STEMI ALERT TIMES MET. PATIENT PAIN-FREE UPON TRANSPORT.
[2019-01-24 07:46] LABS: BASOPHILS 0.9 % (0-2); EOSINOPHILS 1.5 % (0-7); HEMATOCRIT 44.9 % (42.0-54.0); HEMOGLOBIN 15.4 g/dL (13.5-17.5); IMMATURE GRANULOCYTES 1.2 % (0-5); LYMPHOCYTES 20.3 % (15-50); MCHC 34.3 g/dL (31.0-37.0); MCV 90.5 fL (80.0-100.0); MEAN PLATELET VOLUME 10.3 fL (7.4-10.4); MONOCYTES 8.3 % (2-11); NEUTROPHILS 67.8 % (40-80); PLATELET COUNT 163 10x3/uL (130-400); RBC 4.96 10x6/uL (4.20-6.10); RDW 13.2 % (11.5-14.5); WBC 17.2 10x3/uL (4.8-10.8)
[2019-01-24 07:53] LABS: INR 1.06 (0.85-1.17); PROTIME 13.3 SECONDS (11.6-15.0)
[2019-01-24 07:54] LABS: APTT 27.3 SECONDS (22.8-39.4)
[2019-01-24 07:59] LABS: ALKALINE PHOSPHATASE 75 U/L (46-116); ALT (SGPT) 39 U/L (10-68); BILIRUBIN - TOTAL 0.94 mg/dL (0.2-1.3); CALC OSMOLALITY 273 mosm/kg (275-300); CALCIUM 9.6 mg/dL (8.5-10.1); CHLORIDE - SERUM 98 mmol/L (98-107); CREATININE - SERUM 1.2 mg/dL (0.6-1.3); GLUCOSE 162 mg/dL (74-106); PROTEIN - SERUM 7.6 g/dL (6.4-8.2); SODIUM 134 mmol/L (136-145); UREA NITROGEN 17 mg/dL (7-18); eGFR NON AFRICAN AMERICAN 63 mL/min (90-120)
[2019-01-24 08:11] LABS: CKMB 270.1 U/L (0.0-3.6); MAGNESIUM - SERUM 1.6 mg/dL (1.8-2.4)
[2019-01-24 08:14] LABS: CREATINE KINASE 2220 UL (21-232)
[2019-01-24 08:32] LABS: TROPONIN-I 77.941 ng/mL (0.000-0.060)
--- NOTE | 2019-01-24 09:45 | NUR ---
RECEIVED PATIENT FROM STOCK UNLOADER. AWAKE AND ALERT SKIN COOL AND DRY. BALLOON PUMP IN RIGHT FEMEROL. DRESSING DRY AND INTACT. 1:1 RATIO. RIGHT AC IV INFUSING WITH INTERGRILIN AT 0.98 MCG/KG/MIN AT 10 ML HOUR. (RENAL DOSE PER STOCK UNLOADER). HEPARIN AT 1000 UNITS HOUR. NS AT 100 ML HOUR. HEAD OF BED FLAT. INSTRUCTED TO KEEP RIGHT LEG STRAIGHT . KEEP RIGHT STRAIGHT. BAND ON RIGHT WRIST. INFLATED. HAND WARM TO TOUCH. NO BLEEDING AT RIGHT GROIN, DRESSING DRY AND INTACT. PEDAL PULSES IN ANKLES WITH DOPPLER. DENIES PAIN.
--- NOTE | 2019-01-24 10:30 | NUR ---
FAMILY AT BEDSIDE. PATIENT DENIES PAIN. PEDAL PULSES WITH DOPPLER.
--- NOTE | 2019-01-24 11:00 | NUR ---
SIPS OF WATER GIVEN. NO NAUSEA. RIGHT GROIN DRESSING DRY AND INTACT. PEDAL PULSES WITH DOPPLER
--- NOTE | 2019-01-24 12:10 | NUR ---
RIGHT GROIN DRESSING DRY AND INTACT. PEDAL PULSES WITH DOPPLER. FAMILY AT BEDSIDE. LOG ROLLED SLIGHTLY TO RIGHT FOR BACK PAIN. PATIENT TOLERATED WELL
--- NOTE | 2019-01-24 13:30 | NUR ---
DR. DINH HERE, BALLOON PUMP CHANGED TO 1:2 RATIO. RIGHT GROIN DRESSING DRY AND INTACT. PEDAL PULSES PER DOPPLER. DENIES ANY CHEST PAIN. ORDERS RECEIVED FOR DIET AND WE CAN ELEVATED THE HOB TO 30 DEGREES.
--- NOTE | 2019-01-24 14:00 | NUR ---
MayomiWICK SET UP AND SERVED TO PATIENT CONTINUES TO DRINK ICE WATER. NO DISTRESS. STILL SOME SHORTNESS OF BREATH. DENIES ANY CHEST PAIN OR PRESSURE. VOIDED 250 ML OF DARK CLARK URINE IN URINAL. RIGHT GROIN DRESSING DRY AND INTACT. PEDAL PULSES WITH DOPPLER
--- NOTE | 2019-01-24 16:30 | NUR ---
DR. DINH HERE ORDERS RECEIVED TO TURN PATIENT TO 1:3 FREQ. AND TURN OFF HEPARIN IN AM 4 AM, PLAN ON REMOVING IABP AROUND 0830. WANTS A FEM STOP AVAILABLE.
--- NOTE | 2019-01-24 16:53 | NUR ---
AHA DIET SERVED FAMILY AT BEDSIDE. PULLED UP IN BED.
--- NOTE | 2019-01-24 17:00 | NUR ---
NO CHANGE STILL SHORT OF BREATH SOME. DENIES CHEST PAIN. RIGHT GROIN DRESSING DRY AND INTACT. FAMILY HERE UPDATE GIVEN
--- NOTE | 2019-01-24 18:41 | NUR ---
NAPPING AT INTERVALS, DENIES CHEST PAIN OR CHEST PRESSURE. RIGHT GROIN DRESSING DRY AND INTACT. COOOPERATIVE AT KEEPING RIGHT LEG STRAIGHT. REPOSITIONED FOR BACK PAIN. HEPARIN AT 1000 UNITS HOUR, NS AT 100 ML HOUR.
--- NOTE | 2019-01-24 19:15 | NUR ---
SHIFT ASSESSMENT COMPLETE. PATIENT DENIES ANY NEEDS AT THIS TIME. CALL LIGHT WITHIN REACH, BED IN LOW POSITION.
--- NOTE | 2019-01-24 21:30 | NUR ---
ICE CREAM GIVEN PER PATIENT REQUEST. PATIENT DENIES ANY NEEDS AT TIME. NO CHANGES IN PATIENT CONDITION.
--- NOTE | 2019-01-24 23:00 | NUR ---
REASSESSMENT COMPLETE. PATIENT DENIES ANY NEEDS OR PAIN. CALL LIGHT WITHIN REACH, BED IN LOW POSITION.
[2019-01-25] VITALS (32 sets, daily range): BP systolic 87–124; BP diastolic 53–81; Ht 188 cm; Wt 127.1 kg
--- NOTE | 2019-01-25 01:20 | NUR ---
PATIENT IS SLEEPING ON AND OFF. AWAKES EASILY TO VERBAL STIMULI. DENIES ANY CP OR PRESSURE. CALL LIGHT WITHIN REACH, BED IN LOW POSITION.
--- NOTE | 2019-01-25 03:15 | NUR ---
REASESSMENT COMPLETE. PATIENT DENIES ANY NEEDS. CALL LIGHT WITHIN REACH, BED IN LOW POSITION.
--- NOTE | 2019-01-25 04:15 | NUR ---
HEPARIN GTT STOPPED PER MD ORDER. PATIENT RESTING QUIETLY AT THIS TIME.
--- NOTE | 2019-01-25 05:30 | NUR ---
PATIENT WATCHING TV. DENIES ANY NEEDS AT THIS TIME. NO CHANGES IN CONDITION.
--- NOTE | 2019-01-25 07:00 | NUR ---
REPORT RECEVIED FROM THE OFF GOING RN. SEE ASSESSMENT IN THE PTS FLOW SHEET. SINUS TACH ON THE MONITOR. VSS. PT LYING FLAT ON HIS BACK WITH BOTH LEGS STRAIGHT. IABP NOTED GOING THROUGH HIS RIGHT GROIN. NO HEMATOMA NOTED TO GROIN SITE. BILATERAL RADIAL PULSES PALPABLE. BILATERAL DORSALIS PEDIS PULSES PALPABLE. PT URINATING IN HIS URINAL WITH YELLOW URINE NOTED. IABP 1:3. PT DENIES PAIN AT THIS TIME. CALL LIGHT IN REACH. WILL CONT POC.
--- NOTE | 2019-01-25 08:00 | NUR ---
DR DINH CALLED AND STATED TO PREPARE THE PT TO PULL IABP.
--- NOTE | 2019-01-25 08:49 | NUR ---
DR DINH AT THE PTS BEDSIDE. GIVE 4 MORPHINE NOW.
--- NOTE | 2019-01-25 09:11 | NUR ---
DR DINH AT THE PTS BEDSIDE. IABP PULLED AND A FEM STOP PLACED OVER SITE. NO BLEEDING NOTED. PULSES PALPABLE. NO HEMATOMA PALPATED. WILL CONT POC.
--- NOTE | 2019-01-25 11:00 | NUR ---
REASSESSMENT COMPLETED. SEE FLOW SHEET.
--- NOTE | 2019-01-25 11:30 | NUR ---
RIGHT GROIN SOFT TO PALPATATION. SMALL AMOUNT OF BRUSING NOTED. PULSES PALPABLE. PT DENIES PAIN AT THIS TIME. WILL MONITOR.
--- NOTE | 2019-01-25 14:00 | NUR ---
FEMSTOP REMOVED. BRUISING NOTED. SMALL FIRM HEMATOMA NOTED THAT IS NOT GROWING. PT DENIES PAIN. WILL CONT POC/MONITOR.
--- NOTE | 2019-01-25 15:04 | NUR ---
PT IN AN ACCELERATED JUNCTIONAL RYTHM RATE 130. DR DINH CALLED AND NOTIFIED.
--- NOTE | 2019-01-25 15:10 | MORECARE ---
CASE MANAGEMENT DISCHARGE SUMMARY PATIENT: ABEL MARRERO UNIT: [id number] ADM DATE: 01/24/19 AGE: 73 : 44 SEX: M ROOM/BED: [facility] AUTHOR: AMEE HUSSEIN PHYSICIAN: REFERRING PHYSICIAN: JACEY DINH MD DATE OF SERVICE: 01/25/19 Discharge Plan Patient Name: ABEL MARRERO [facility] [facility] 1945 Planned Disposition: Home Anticipated Discharge Date: Discharge Date: Expected LOS: Initial Reviewer: [email or web address] Initial Review Date: 01/25/2019 Generated: 01/25/19 4:10 pm DCPIA - Discharge Planning Initial Assessment Updated by [email or web address]: Ana Reeder on 01/25/19 3:07 pm * Is the patient Alert and Oriented? Yes * How many steps to enter\exit or inside your home? * PCP [facility] * Pharmacy [address] * Preadmission Environment Home with Family * ADLs Independent * Equipment None * List name and contact numbers for known caregivers / representatives who currently or will assist patient after discharge: YASMIN MARRERO - - [phone] * Verbal permission to speak to the caregivers and representatives has been obtained from the patient. Yes * Community resources currently utilized None * Additional services required to return to the preadmission environment? No * Can the patient safely return to the preadmission environment? Yes * Has this patient been hospitalized within the prior 30 days at any hospital? No Patient Name: ABEL MARRERO Page 92189 at 1510 All edits/amendments must be made on the electronic document DICTATION DATE: 01/25/19 151 STONE ROUGHER: JOSHUA 01/25/19 151 RPT#: [id number] DC DATE: STATUS: ADM IN [facility] [address] [place] [address] END OF REPORT
--- NOTE | 2019-01-25 15:16 | NUR ---
DR DINH AT THE PTS BEDSIDE. AMIODORONE BOLUS. IF THAT DOES NOT CONVER, DO IT AGAIN. AMIODORONE 1MG/MIN FOR 6 HOURS THEN DECREASE TO 0.5MG/MIN. AMIODORONE 200MG BID PO
--- NOTE | 2019-01-25 15:54 | MORECARE ---
CASE MANAGEMENT DISCHARGE SUMMARY PATIENT: ABEL MARRERO UNIT: [id number] ADM DATE: 01/24/19 AGE: 73 : 43 SEX: M [facility] AUTHOR: JOVITA,DOC PHYSICIAN: REFERRING PHYSICIAN: JACEY DINH MD DATE OF SERVICE: 01/25/19 Discharge Plan Patient Name: ABEL MARRERO Facility: [facility]:[place] : 1945 Planned Disposition: Home Anticipated Discharge Date: Discharge Date: Expected LOS: Initial Reviewer: [email or web address] Initial Review Date: 01/25/2019 Generated: 01/25/19 4:54 pm Comments DCP- Discharge Planning Updated by [email or web address]: Ana Reeder on 01/25/19 2:[address] Patient Name: ABEL MARRERO Admission Status: ER Accout number: [id number] Admission Date: 01-24-2019 : 1945 Admission Diagnosis: Attending: BESSY DINH Current LOS: 1 Anticipated DC Date: Planned Disposition: Home Primary Insurance: MEDICARE A & B Discharge Planning Comments: CM met with patient at bedside after explaining CM role and obtaining verbal consent. Patient lives at home with his where he is independent with his care and plans to return there upon discharge. Patient feels this would be a safe discharge. CM discussed availability / needs of home health and medical equipment. Patient denies any discharge needs at this time. Patient states he will have his family drive him home upon discharge. CM will continue to follow and assist as needed with discharge planning / needs. Speaker Mounter: Ana Reeder DCPIA - Discharge Planning Initial Assessment Updated by [email or web address]: Ana Reeder on 01/25/19 3:07 pm * Is the patient Alert and Oriented? Yes * How many steps to enter\exit or inside your home? * PCP [facility] * Pharmacy [facility] - [address] * Preadmission Environment Home with Family * ADLs Independent * Equipment None * List name and contact numbers for known caregivers / representatives who currently or will assist patient after discharge: YASMIN MARRERO - - [phone] * Verbal permission to speak to the caregivers and representatives has been obtained from the patient. Yes * Community resources currently utilized None * Additional services required to return to the preadmission environment? No * Can the patient safely return to the preadmission environment? Yes * Has this patient been hospitalized within the prior 30 days at any hospital? No Last DP export: 01/25/19 2:10 Patient Name: ABEL MARRERO Page 90604 at 1554 All edits/amendments must be made on the electronic document DICTATION DATE: 01/25/191553 RN NEUROLOGY: JOSHUA 01/25/191553 RPT#: [id number] DC DATE: STATUS: ADM IN [facility] [address] [place] [address] END OF REPORT
--- NOTE | 2019-01-25 16:08 | NUR ---
AFTER SECOND BOLUS, PT HEART RATE 113 ACCEL JUNCT. RYTHEM. WILL CONT POC.
--- NOTE | 2019-01-25 17:45 | NUR ---
GROIN SITE REMAINS UNCHANGED. VSS. WILL CONT POC.
--- NOTE | 2019-01-25 19:31 | NUR ---
REPORT RECEIVED, SHIFT ASSESSMENT COMPLETED PER FLOW SHEET, SEE FOR DETAILS. SMALL HEMATOMA TO RIGHT GROIN, DENIES PAIN. INFORMED BY DAY SHIFT RN TO KEEP NS AT 100 ML/HR. DENIES NEEDS. CALL LIGHT WITHIN REACH. 2110 SCHEDULED MED GIVEN, WATER PROVIDED, TOLERATED WELL. DENIES NEEDS. CALL LIGHT WITHIN REACH. 2330 REASSESSMENT COMPLETED PER FLOW SHEET, SEE FOR DETAILS. DENIES NEEDS. CALL LIGHT WITHIN REACH.
[2019-01-26] VITALS (15 sets, daily range): BP systolic 98–142; BP diastolic 63–87
--- NOTE | 2019-01-26 01:00 | NUR ---
RESTING, NO ACUTE CHANGES NOTED, DENIES NEEDS. WILL CONTINUE TO MONITOR. 0320 REASSESSMENT COMPLETED PER FLOW SHEET, SEE FOR DETAILS. DENIES NEEDS. CALL LIGHT WITHIN REACH. 0405 PATIENT SOB, O2 SAT 88%, ALERT AND ORIENTED. O2 INCREASED TO 4 L AND ELEVATED HOB, O2 SAT IMPROVED TO 90-91%. LUGH SOUNDS DIMINISHED/INSPIRATORY WHEEZING. PATIENT STATES HE HAS HISTORY OF ASBESTOS. PAGED DR. DINH. 0409 DR. DINH RETURNED CALL, UPDATE GIVEN ON PATIENT CURRENT STATUS. HOME MEDS REVIEWED. NEW ORDERS RECEIVED FOR ATROVENT, D/C NS, AND LASIX, SEE ORDERS FOR COMPLETE DETAILS. 0445 STATES HE IS FEELING BETTER. O2 SAT 91%. WILL CONTINUE TO MONITOR.
--- NOTE | 2019-01-26 06:00 | NUR ---
NO ACUTE DISTRESS NOTED, DENIES NEEDS. 02 SAT IMPROVED, STATES HE FEELS BETTER.
--- NOTE | 2019-01-26 11:17 | NUR ---
PATIENT DOES QUALIFY FOR CARDIAC REHAB AND WILL AWAIT ORDERS FROM DR. DINH TO WHEN PATIENT SHOULD BEGIN CARDIAC REHAB. DID DISCUSS BRIEFLY ABOUT DIET AND CARDIAC REHAB PROGRAM.
--- NOTE | 2019-01-26 13:28 | OP ---
PATIENT NAME: ABEL MARRERO MEDICAL RECORD: [id number] :43 LOCATION:[facility] ADMISSION DATE:01/24/19 SURGEON: JACEY DINH MD DATE OF OPERATION: 01/24/2019 PROCEDURES: 1. PTCA stent LAD. 2. PTCA stent RCA. 3. AngioJet LAD. 4. Intraaortic balloon pump. 5. Left heart catheterization. 6. Selective coronary angiography. 7. Left ventriculogram. INDICATION: Acute anterolateral myocardial infarction with cardiogenic shock. PROCEDURE IN DETAIL: After informed consent was obtained and after a detailed description of risks, benefits as well as alternative therapies, the patient elected to proceed with angiogram and angioplasty. The right femoral area was prepped and draped in normal sterile fashion. Right femoral artery was cannulated via modified Seldinger technique with placement of 8-Croatian sheath. Right femoral vein was cannulated via modified Seldinger technique with placement of a 6-Croatian sheath. Temporary pacemaker was undertaken during the case, pulled after the case, this sheath remained in place. Intraaortic balloon pump was placed after the intervention. FINDINGS: The left ventriculogram was performed in standard 30-degree LLOYD view, reveals global hypokinesis, ejection fraction in the 20% to 30% range. SELECTIVE CORONARY ANGIOGRAPHY: 1. Left main is with no significant angiographic disease. 2. Left anterior descending is acutely totally occluded with acute thrombus. 3. The left circumflex is patent. 4. The right coronary artery is patent; however, there is a large thrombus burden in the mid vessel with at least 80% and 90% stenosis. ANGIOJET THROMBECTOMY OF THE LAD: Multiple passes were made with the AngioJet through the LAD. Stenting was undertaken with a 3.5 x 30 mm Integrity. Result was 0% residual stenosis. The right coronary artery is very tortuous. We could not advance the AngioJet to the area of thrombosis. We were able to advance a 4.0 x 30 Integrity stent and inflate this to 21 atmospheres. Result was 0% residual stenosis. OVERALL IMPRESSION: Successful percutaneous transluminal coronary angioplasty stent of the left anterior descending and right coronary artery, both going from 90% to 100% initial stenosis to 0% residual. TRANSINT:[id number] Voice Confirmation ID: [id number] DOCUMENT ID: [id number] OPERATIVE REPORT [id number] ABEL MARRERO JEFFREY MD at 1328 CC: [id number] DICTATION DATE: 01/24/19 0853 TERRAZZO POLISHER HELPER: 01/24/19 1034 ADM IN [facility] [address] [place] [id number]
--- NOTE | 2019-01-26 13:28 | HP ---
PATIENT: ABEL MARRERO MEDICAL RECORD: [id number] ACCOUNT: [id number] LOCATION:[facility] CHAN05 : [birth year] ADMISSION DATE: 01/24/19 PCP: JOLENE ELMORE HISTORY AND PHYSICAL EXAMINATION DIAGNOSES: 1. Acute coronary syndrome. 2. Abnormal ECG. 3. Coronary artery disease. 4. Hypertension. 5. Hyperlipidemia. HISTORY OF PRESENT ILLNESS: Mr. Marrero awoke with acute onset of crushing substernal chest discomfort. He does have a past history of coronary artery disease, last cardiac catheterization, intervention was November of 2017. His EKG has ST-T changes laterally with some ST elevation. He continues to have the chest discomfort. PHYSICAL EXAMINATION: CONSTITUTIONAL/GENERAL APPEARANCE: Well nourished, well developed, appears stated age. EYES: Lids and conjunctivae noninjected. No discharge. No pallor. ENT: Lips within normal limit. No cyanosis. No pallor. NECK: Carotid arteries, bilateral normal upstroke. No bruits. No thrills. No jugular venous pressure or distention. CERVICAL LYMPH NODES: Nontender. Nonenlarged. THYROID: Not enlarged. No nodules. CARDIOVASCULAR: Precordial exam, nondisplaced. No heaves or pericardial thrills. Rate and rhythm, regular. Heart sounds, normal S1, normal S2. No S3, no gallop, no rub. Systolic murmur, not heard. Diastolic murmur, not heard. RESPIRATORY: Respiratory effort, unlabored. Normal curvature. No thoracic deformity. No chest wall tenderness. Percussion, resonant. Auscultation, clear. No wheezes, no rales, no rhonchi. ABDOMEN: Soft, nondistended, nontender. No abdominal pain, no vomiting and normal appetite. MUSCULOSKELETAL: No joint tenderness, normal gait, normal tone. SKIN: Warm and dry. OVERALL IMPRESSION: Acute coronary syndrome, possible ST-elevation myocardial infarction with abnormal ECG and continued chest discomfort in a patient with a past history of coronary artery disease. We will proceed with emergent coronary angiography. TRANSINT:[id number] Voice Confirmation ID: [id number] DOCUMENT ID: [id number] HISTORY AND PHYSICAL [id number] MARREROABEL GUEVARA JACEY CARROLL MD at 1328 CC: [id number] DICTATION DATE: 01/24/19 0751 DIE MECHANIC: 01/24/19 0800 ADM IN [facility] [address] [place] [id number]
--- NOTE | 2019-01-26 13:29 | EC ---
PATIENT:ABEL MARRERO DATE OF SERVICE: 01/24/19 SEX: M MEDICAL RECORD: [id number] DATE OF : [birth year] LOCATION:[place] [address] AGE OF PATIENT: 73 ADMISSION DATE: 01/24/19 REFERRING PHYSICIAN: INTERPRETING PHYSICIAN: JACEY MONIQUE MD ECHOCARDIOGRAM REPORT ECHO CHARGES 4 ECHO COMPLETE Date: 01/25/19 CLINICAL DIAGNOSIS: OR ASSESS EF ECHOCARDIOGRAPHIC MEASUREMENTS (adult normal given) AC root (d.<3.7cm) 3.9 cm LV Septum d (<1.2 cm> 1.2 cm Valve Excursion 1.6 cm LV Septum (systole) 1.4 cm Left Atria (s.<4.0cm> 4.2 cm LVPW d(<1.2cm) 1.6 cm RV (d.<2.3cm) 3.9 cm LVPW (sytole) 1.7 cm LV diastole(<5.6CM) 7.3 cm MV E-F(>70mm/sec) cm LV systole 6.0 cm LVOT Diameter 2.3 cm MV exc.(>10mm) 1.8 cm Est.ejection fraction (50-75%) % DOPPLER: LVIT cm/sec A 50.0 cm/sec E 115 cm/sec LA cm/sec RVSP 24 mmHg LVOT 83 cm/sec AOP1/2T m/s Asc. Ao 106 cm/sec RVOT 95 cm/sec RA cm/sec PA 148 cm/sec AV Gradient Peak 4.49 mmHg AV Mean 2.73 mmHg AV Area 3.1 cm MV Gradient Peak 9.24 mmHg MV Mean 2.71 mmHg MV Area cm COMMENTS: Horse Race Timer: Cait CHOUDHARY Towel Distributor: 1 Dr. Monique TAPE# PACS Pericardial Effusion N DATE OF SERVICE: 01/25/2019 FINDINGS: 1. Left ventricular chamber size is mildly dilated. Left ventricular systolic function is markedly reduced, overall ejection fraction in the 50% range. 2. Left atrium is dilated at 4.2 cm. Right atrium and right ventricular chamber sizes are within normal limits. 3. Valvular structures have normal structure and motion. 4. Doppler interrogation reveals mild mitral regurgitation, mild tricuspid regurgitation, no other valvular insufficiency or stenosis. ECHOCARDIOGRAM REPORT [id number] ABEL MARRERO 5. No evidence of pericardial effusion or left ventricular thrombus. TRANSINT:[id number] Voice Confirmation ID: [id number] DOCUMENT ID: [id number] JACEY MONIQUE MD at 1329 CC: [id number] DICTATION DATE: 01/25/19 1506 SEISMIC INTERPRETER: 01/25/19 1656 ADM IN [facility] [address] [place] [address]
--- NOTE | 2019-01-26 15:46 | NUR ---
0800-PT INQUIRING ABOUT CARDIAC REHAB-IF HE QUALIFIES-DENIES ANY CHEST PAIN AT THIS TIME-JUNCTIONAL TACH ON MONITOR-?1ST DEGREE BLOCK 1130-DR DINH AT BEDSIDE AND AWARE OF MONITOR 1230-PHYSICAL THERAPY AT BEDSDIE AND AMBULATED -C/O SOB
--- NOTE | 2019-01-26 16:23 | NUR ---
TRANSFER FROM CVICU BY W/Madison LOUIE TO ROOM. CALL LIGHT IN REACH. WILL CONT. PLAN OF CARE.
--- NOTE | 2019-01-26 19:55 | NUR ---
RECIEVED BEDSIDE SHIFT REPORT. ALERT AND ORIENTED X4. UP IN BED WITH HOB ELEVATED. TELEMETRY IN PLACE. O2@ 2 LITERS PER N/C. STATES HE WANTS TO GO TO [facility] FOR SECOND OPINION ABOUT HIS HEART. FAMILY AT BEDSIDE. EXPLAINED I WAS NOT SURE HOW THAT WORKED AND THAT I WOULD TRY TO FIND OUT. IV TO RIGHT FA SL.. DENIES ANY NEEDS AT THIS TIME.
[2019-01-27] VITALS (7 sets, daily range): BP systolic 100–117; BP diastolic 64–87
--- NOTE | 2019-01-27 07:15 | NUR ---
RECEIVED PT IN BED EYES CLOSED RESP UNLABORED SKIN W/D NAD NOTED WILL CONTINUE TO MONITOR
--- NOTE | 2019-01-27 19:17 | NUR ---
RECIEVED UP IN BED WITH EYES OPEN AND TV ON. ALERT AND ORIENTED X4. O2@ 2LITERS PER N/C IN PLACE. IV TO RIGHT FA SL. TELEMETRY IN PLACE. DARK PURPLE BRUISING TO RIGHT GROIN. DENIES ANY NEEDS AT THIS TIME.
[2019-01-28 04:00] VITALS: BP 107/69
--- NOTE | 2019-01-28 08:51 | NUR ---
AM MEDS GIVEN AT THIS TIME. PT IN BED, WATCHING TV AND EATING BREAKFAST, PT DENIES ANY NEEDS AT THIS TIME. CALL LIGHT IN REACH, NAD NOTED, WILL CONITNUE TO MONITOR.
[2019-01-28 08:56] VITALS: BP 108/74
--- NOTE | 2019-01-28 13:06 | NUR ---
Rehab Note- Acute Inpatient Rehab prescreen order received. The patient is a good inpatient rehab candidiate when medically stable and if in agreeance to [facility] Acute Inpatient Rehab prior to discharging home. Will continue to follow at this time. THank you for this referral! Jazmin Beckett RN Clinical Liaison, [facility] Rehab
[2019-01-28 20:00] VITALS: BP 101/65
--- NOTE | 2019-01-28 20:27 | NUR ---
RECIEVED BEDSIDE REPORT. UP IN BED WITH O2@ 3 LITERS PER N/C. IV TO RT SEAN HSRESTHA.. TELEMETRY IN PLACE. RIGHT GROIN HAS DARK PURPLE BRUSING. DENIES ANY NEESD AT THIS TIME.
[2019-01-29] VITALS: BP 114/75
--- NOTE | 2019-01-29 14:00 | NUR ---
TELEMETRY SR. RESP UL ON 02 2L NC. CALL LIGHT IN REACH. WILL CONT. PLAN OF CARE.
--- NOTE | 2019-01-29 14:39 | MORECARE ---
CASE MANAGEMENT DISCHARGE SUMMARY PATIENT: ABEL MARRERO UNIT: [id number] ADM DATE: 01/24/19 AGE: 73 : 43 SEX: M ROOM/BED: D.2790 AUTHOR: AMEE HUSSEIN PHYSICIAN: REFERRING PHYSICIAN: JACEY DINH MD DATE OF SERVICE: 01/29/19 Discharge Plan Patient Name: ABEL MARRERO Facility: [facility]:[place] : 1945 Planned Disposition: Inpatient Rehab Anticipated Discharge Date: 01/29/19 Discharge Date: Expected LOS: 5 Initial Reviewer: [email or web address] Initial Review Date: 01/25/2019 Generated: 01/29/19 3:39 pm DCP- Discharge Planning Updated by [email or web address]: Ana Reeder on 01/25/19 2:[address] Patient Name: ABEL MARRERO Admission Status: ER Accout number: [id number] Admission Date: 01-24-2019 : 1945 Admission Diagnosis: Attending: BESSY DINH Current LOS: 1 Anticipated DC Date: Planned Disposition: Home Primary Insurance: MEDICARE A & B Discharge Planning Comments: CM met with patient at bedside after explaining CM role and obtaining verbal consent. Patient lives at home with his where he is independent with his care and plans to return there upon discharge. Patient feels this would be a safe discharge. CM discussed availability / needs of home health and medical equipment. Patient denies any discharge needs at this time. Patient states he will have his family drive him home upon discharge. CM will continue to follow and assist as needed with discharge planning / needs. Production Planning Supervisor: Ana Reeder DCPIA - Discharge Planning Initial Assessment Updated by [email or web address]: Ana Reeder on 01/25/19 3:07 pm * Is the patient Alert and Oriented? Yes * How many steps to enter\exit or inside your home? * PCP [facility] * Pharmacy [facility] - [facility] * Preadmission Environment Home with Family * ADLs Independent * Equipment None * List name and contact numbers for known caregivers / representatives who currently or will assist patient after discharge: YASMIN MARRERO - - [phone] * Verbal permission to speak to the caregivers and representatives has been obtained from the patient. Yes * Community resources currently utilized None * Additional services required to return to the preadmission environment? No * Can the patient safely return to the preadmission environment? Yes * Has this patient been hospitalized within the prior 30 days at any hospital? No Coverage Notice Reviewer: [email or web address] Carol Ruiz Sheryl Notice Issued Date-Time: 01/29/2019 14:30 Notice Type: IM Discharge Notice Notice Delivered To: Patient Relationship to Patient: Stewarding Supervisor Name: Delivery Method: HAND - Hand Delivered Joanne Days: Prior Verbal Notification: Recipient Understood Notice: Yes Recipient Signature: Yes Med Rec Note Co-signed by Attending: Coverage Notice Comment: Last DP export: 01/25/19 2:54 Patient Name: ABEL MARRERO Page 40424 at 1439 All edits/amendments must be made on the electronic document DICTATION DATE: 01/29/191438 BRUSH CLEARER SURVEYING: JOSHUA 01/29/191438 RPT#: [id number] DC DATE: STATUS: ADM IN [facility] [address] [place] [address] END OF REPORT
--- NOTE | 2019-01-29 14:51 | MORECARE ---
CASE MANAGEMENT DISCHARGE SUMMARY PATIENT: ABEL MARRERO UNIT: [id number] ADM DATE: 01/24/19 AGE: 73 : 44 SEX: M ROOM/BED: D.7535 AUTHOR: AMEE HUSSEIN PHYSICIAN: REFERRING PHYSICIAN: JACEY DINH MD DATE OF SERVICE: 01/29/19 Discharge Plan Patient Name: ABEL MARRERO [facility] [facility] 1945 Planned Disposition: Inpatient Rehab Anticipated Discharge Date: 01/29/19 Discharge Date: Expected LOS: 5 Initial Reviewer: [email or web address] Initial Review Date: 01/25/2019 Generated: 01/29/19 3:50 pm Comments DCP- Discharge Planning Updated by [email or web address]: Joseph Saucedo on 01/29/19 1:[address] Patient Name: ABEL MARRERO Admission Status: ER Accout number: [id number] Admission Date: 01-24-2019 : 1945 Admission Diagnosis: Attending: BESSY DINH Current LOS: 5 Anticipated DC Date: 01-29-2019 Planned Disposition: Inpatient Rehab Primary Insurance: MEDICARE A & B PLANNED EXTERNAL PROVIDER: [facility] INPATIENT REHAB Discharge Planning Comments: CM RECEIVED ORDER FOR INPATIENT REHAB PRESCREENING, SPOKE TO PT IN ROOM, DISCUSSED AVAILABILITY OF REHAB, PROVIDERS AND LOCATIONS. PT WOULD LIKE REHAB AT [facility]. IMPORTANT MESSAGE FROM MEDICARE PROVIDED AND EXPLAINED. CM SPOKE TO JANETH OF INPATIENT REHAB, THEY PLAN TO ACCEPT PT TODAY IF STABLE FOR DISCHARGE TO REHAB. DR. DINH NOTIFIED AND WILL DISCHARGE PT TO INPATIENT REHAB. PRINT PRESS OPERATOR NURSE NOTIFIED. PT'S PHYSICAL ADDRESS AT HOME IS [address] [place] [address], [address], [place] [address]. [facility] INPATIENT RE[facility]AB TO CONTACT MED 2 NURSE WITH ROOM NUMBER WHEN READY TO ACCEPT PT AND NURSE REPORT. Hr Operations Advisor: Joseph Saucedo DCP- Discharge Planning Updated by [email or web address]: Ana Reeder on 01/25/19 2:[address] Patient Name: ABEL MARRERO Admission Status: ER Accout number: [id number] Admission Date: 01-24-2019 : 1945 Admission Diagnosis: Attending: BESSY DINH Current LOS: 1 Anticipated DC Date: Planned Disposition: Home Primary Insurance: MEDICARE A & B Discharge Planning Comments: CM met with patient at bedside after explaining CM role and obtaining verbal consent. Patient lives at home with his where he is independent with his care and plans to return there upon discharge. Patient feels this would be a safe discharge. CM discussed availability / needs of home health and medical equipment. Patient denies any discharge needs at this time. Patient states he will have his family drive him home upon discharge. CM will continue to follow and assist as needed with discharge planning / needs. Hr Operations Advisor: Ana FLOWERA - Discharge Planning Initial Assessment Updated by [id number]: Ana Reeder on 01/25/19 3:07 pm * Is the patient Alert and Oriented? Yes * How many steps to enter\exit or inside your home? * PCP [place] * Pharmacy [facility] [address] * Preadmission Environment Home with Family * ADLs Independent * Equipment None * List name and contact numbers for known caregivers / representatives who currently or will assist patient after discharge: YASMIN MARRERO - - [phone] * Verbal permission to speak to the caregivers and representatives has been obtained from the patient. Yes * Community resources currently utilized None * Additional services required to return to the preadmission environment? No * Can the patient safely return to the preadmission environment? Yes * Has this patient been hospitalized within the prior 30 days at any hospital? 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
--- NOTE | 2019-01-29 15:11 | NUR ---
Nutrition Follow-up: Diet: Cardiac PO intake: 50-100% Wt: 279# Last BM: 01/27 per chart No new labs Meds noted: Lasix -Change to cardiac carb consistent diet. -RD following.
[2019-01-29] MEDS ORDERED: AMIODARONE HCL200 MG PO (15:12)
[2019-01-29] MEDS ORDERED: COREG6.25 MG PO (15:12)
[2019-01-29] MEDS ORDERED: ATROVENT 0.02%2.5 ML UPD (15:12)
[2019-01-29] MEDS ORDERED: PRAVACHOL20 MG PO (15:12)
[2019-01-29] MEDS ORDERED: ATIVAN0.5 MG PO (15:13)
[2019-01-29] MEDS ORDERED: LASIX40 MG PO (15:13)
[2019-01-29] MEDS ORDERED: PLAVIX75 MG PO (15:13)
[2019-01-29] MEDS ORDERED: BAYER CHEWABLE81 MG PO (15:13)
--- NOTE | 2019-01-29 15:16 | NUR ---
PAGED DR DINH AND HE CALLED BACK WITH CLARIFICATION OF MEDS FOR DISCHARGE FOR REHAB.
--- NOTE | 2019-01-29 15:32 | NUR ---
UPON ADMIT, PATIENT STATES TO HAVING A FLU SHOT. NO SHOT GIVEN AT DISCHARGE. ALSO, STELLATENT ON ADMIT HAS REFUSED ANY SMOKING CESSAGTION.
--- NOTE | 2019-01-29 16:48 | NUR ---
IV AND TELEMETRY DCD. DC PLANS GIVEN. UNDERSTANDING VOICED. REPORT CALLED TO REHAB. TRANSFERED BY W/C.
--- NOTE | 2019-02-06 11:40 | DS ---
PATIENT:ABEL MARRERO :43 MEDICAL RECORD: [id number] DISCHARGE SUMMARY ADMISSION DATE: 01/24/19 DISCHARGE DATE: 01/29/19 DIAGNOSES: 1. Ischemic cardiomyopathy. 2. Congestive heart failure, chronic systolic dysfunction. 3. Coronary artery disease. 4. Status post anterior myocardial infarction. 5. Hyperlipidemia. HOSPITAL COURSE: This is a gentleman, who presented with an acute anterior myocardial infarction, found to have total occlusion of his LAD, large thrombus burden with 90% stenosis of the RCA as well. Underwent successful PTCA and stent, AngioJet thrombectomy of both territories. Unfortunately, his ejection fraction was in the 15% to 20% range at the time of cardiac catheterization. Echocardiogram performed. After the cardiac catheterization, the ejection fraction remained low. He was very short of breath with ambulating. No overt heart failure. He was placed on Coreg. He had an episode of junctional tachycardia for which he was placed on Cordarone. He had no further dysrhythmias on the Cordarone. His blood pressure was not high enough to institute ABHILASH inhibitor or Entresto. He was on aspirin, Plavix, Pravachol along with the Coreg and Cordarone. Due to his limitations with ambulation and exertion, he was transferred to the inhouse rehab facility for continued medical management with the current medications, increasing if his blood pressure tolerates it and undergoing rehab therapy. TRANSINT:[id number] Voice Confirmation ID: [id number] DOCUMENT ID: [id number] JACEY DINH MD at 1140 CC: [id number] DICTATION DATE: 01/30/1947 CAR UNLOADER: 01/30/19 1027 DIS IN 01/29/19 [id number] [place] [address]
== END 2019-01-29 16:49 | DRG 270 ==
LOC: D.ER 07:27 → D.CVICU 07:40 → D.M2 01-26 16:14
PROVIDERS: Family Medicine; ADMIT Internal Medicine Interventional Cardiology; ATTEND Internal Medicine Interventional Cardiology
PROC: B2111ZZ Fluoroscopy of Multiple Coronary Arteries using Low Osmolar Contrast (ICD-10-PCS; 2019-01-24)
PROC: B2151ZZ Fluoroscopy of Left Heart using Low Osmolar Contrast (ICD-10-PCS; 2019-01-24)
PROC: 4A023N7 Measurement of Cardiac Sampling and Pressure, Left Heart, Percutaneous Approach (ICD-10-PCS; 2019-01-24)
PROC: 02713EZ Dilation of Coronary Artery, Two Arteries with Two Intraluminal Devices, Percutaneous Approach (ICD-10-PCS; principal; 2019-01-24 07:40)
PROC: 5A02210 Assistance with Cardiac Output using Balloon Pump, Continuous (ICD-10-PCS; 2019-01-24 07:40)
PROC: 02C03ZZ Extirpation of Matter from Coronary Artery, One Artery, Percutaneous Approach (ICD-10-PCS; 2019-01-24 07:40)
DX: I21.09 ST elevation (STEMI) myocardial infarction involving other coronary artery of anterior wall (principal); R57.0 Cardiogenic shock; I47.1 Supraventricular tachycardia; I25.10 Atherosclerotic heart disease of native coronary artery without angina pectoris; I10 Essential (primary) hypertension; E78.5 Hyperlipidemia, unspecified; R94.31 Abnormal electrocardiogram [ECG] [EKG]; I25.119 Atherosclerotic heart disease of native coronary artery with unspecified angina pectoris; I24.9 Acute ischemic heart disease, unspecified; K21.9 Gastro-esophageal reflux disease without esophagitis; E11.9 Type 2 diabetes mellitus without complications

== ENCOUNTER 2019-01-29 17:49 | Inpatient (IN) | payer MEDICARE ==
[~2019-01-29] VITALS: Ht 188 cm; Wt 120.2 kg
[~2019-01-29 17:49] MED LIST changes: +AMIODARONE HCL200 MG PO; +ATIVAN0.5 MG PO; +ATROVENT 0.02%2.5 ML UPD; +COREG6.25 MG PO; +LASIX40 MG PO; +PLAVIX75 MG PO; +PRAVACHOL20 MG PO
--- NOTE | 2019-01-29 18:10 | NUR ---
ALERT AND ORIENTED. O2 AT 2L NC. KNOWS YEAR AND MONTH AND REPEATED BACK THREE BIMS MEMORY QUESTIONS. HAS AN OLD R ABD SCAR FROM GALL BLADDER SURGERY. SAFETY PRECAUTIONS GIVEN AND WAS TOLD NOT TO GET UP FOR ANY REASON WO CALLING FOR STAFF TO ASSIST FOR FALL PREVENTION. NO SKIN BREAKDOWN NOTED. BUTTOCKS AND HEELS WO REDNESS. DRY SKIN NOTED TO HEELS. CL IN REACH.
[2019-01-29 18:13] VITALS: BP 112/79; BMI 35.4
--- NOTE | 2019-01-29 19:00 | NUR ---
BEDSIDE REPORT COMPLETE. PT LYING IN BED ALERT AND ORIENTED X4. DENIES ANY PAIN OR NEEDS. NO SIGNS OF ACUTE DISTRESS NOTED. CONTINUES ON 2L VIA NC. CL IN REACH, FALL PRECAUTIONS IN PLACE. WILL CONTINUE TO MONITOR
[2019-01-29 21:02] VITALS: BP 112/79
--- NOTE | 2019-01-29 23:09 | NUR ---
QUIET HOURS. PT LYING IN BED SUPINE EYES CLOSED RESTING QUIETLY. NO SIGNS OF DISTRESS NOTED. WILL CONTINUE TO MONITOR
--- NOTE | 2019-01-30 03:23 | NUR ---
PT LYING IN BED ON RIGHT SIDE EYES CLOSED RESTING QUIETLY. RR EVEN AND UNLABORED. CONTINUES ON 2L VIA NC. CL IN REACH. URINAL EMPTIED 600ML CLARK IN COLOR.
[2019-01-30 05:18] LABS: BASOPHILS 0.5 % (0-2); EOSINOPHILS 1.2 % (0-7); HEMATOCRIT 43.4 % (42.0-54.0); HEMOGLOBIN 13.9 g/dL (13.5-17.5); IMMATURE GRANULOCYTES 2.8 % (0-5); LYMPHOCYTES 11.4 % (15-50); MCH 30.5 pg (26.0-34.0); MCV 95.4 fL (80.0-100.0); MEAN PLATELET VOLUME 9.7 fL (7.4-10.4); MONOCYTES 10.8 % (2-11); NEUTROPHILS 73.3 % (40-80); RBC 4.55 10x6/uL (4.20-6.10); RDW 13.5 % (11.5-14.5); WBC 13.9 10x3/uL (4.8-10.8)
[2019-01-30 05:43] LABS: CALC OSMOLALITY 286 mosm/kg (275-300); CALCIUM 9.1 mg/dL (8.5-10.1); CARBON DIOXIDE 38.1 mmol/L (21.0-32.0); CHLORIDE - SERUM 99 mmol/L (98-107); GLUCOSE 159 mg/dL (74-106); POTASSIUM - SERUM 4.4 mmol/L (3.5-5.1); SODIUM 141 mmol/L (136-145); UREA NITROGEN 21 mg/dL (7-18); eGFR NON AFRICAN AMERICAN 78 mL/min (90-120)
[2019-01-30 05:50] LABS: PLATELET COUNT 296 10x3/uL (130-400)
[2019-01-30 07:57] VITALS: BP 127/83
--- NOTE | 2019-01-30 08:15 | NUR ---
PT RESTING IN BED WITH EYES OPEN CALL LIGHT IN REACH NO PROBLEMS WILL MONITER
--- NOTE | 2019-01-30 10:51 | NUR ---
PATIENT ADMITTED TO REHAB FROM ACUTE FLOOR. DISCHARGE PLANS ARE FOR PATIENT TO RETURN HOME WITH HIS SPOUSE. HE HAS NO DME AT HOME NOR HAS HE USED HOME HEALTH. HIS PCP IS DR. ELMORE. WILL CONTINUE TO FOLLOW WITH PATIENT AND WILL ASSIST WITH DISCHARGE NEEDS.
[2019-01-30 14:09] VITALS: Ht 188 cm; Wt 120.2 kg
--- NOTE | 2019-01-30 18:07 | NUR ---
PT RESTING IN BED WITH FAMILY AT BEDSIDE CALL LIGHT IN REACH WILL MONITER
--- NOTE | 2019-01-30 19:05 | NUR ---
BEDSIDE REPORT COMPLETE. PT LYING IN BED EYES CLOSED RESTING. RR EVEN AND UNLABORED. CONTINUES ON 2L VIA NC. VS STABLE. SHIFT ASSESSMENT COMPLETE. CL IN REACH. FALL PRECAUTIONS IN PLACE. WILL CONTINUE TO MONITOR
[2019-01-30 20:56] VITALS: BP 108/73
--- NOTE | 2019-01-30 23:51 | NUR ---
QUIET HOURS. PT LYING IN BED ON RIGHT SIDE EYES CLOSED RESTING. CONTINUES ON 2L VIA NC. CL IN REACH
--- NOTE | 2019-01-31 03:47 | NUR ---
PT LYING IN BED ON RIGHT SIDE EYES CLOSED RESTING. RR EVEN AND UNLABORED. CL IN REACH
--- NOTE | 2019-01-31 04:25 | NUR ---
CPR INITIATED CODE BLUE CALLED.
--- NOTE | 2019-01-31 04:39 | NUR ---
YASMIN MARRERO- WAS NOTIFIED.
--- NOTE | 2019-01-31 04:41 | NUR ---
DR. VASQUEZ CALLED LEFT VM.
--- NOTE | 2019-01-31 04:53 | NUR ---
THERESE MEYER CALLED AND NOTIFIED OF CODE IN PROGRESS. THERESE ADVISED HE WAS ON HIS WAY.
--- NOTE | 2019-01-31 04:56 | NUR ---
CODE STOPPED PT ASYSTOLE. TOD CALLED BY DR. ZEPEDA.
--- NOTE | 2019-01-31 05:15 | NUR ---
PT FAMILY ARRIVED TO UNIT.
--- NOTE | 2019-01-31 05:50 | NUR ---
[facility]LM[facility] NOTIFIED. TROUBLE SHOOTER DILCIA OLIVAS REF# [id number] PERMISSION TO RELEASE TO HOME.
--- NOTE | 2019-01-31 06:05 | NUR ---
[facility] NOTIFIED.
--- NOTE | 2019-01-31 07:50 | NUR ---
[facility] PICKED UP BODY.
--- NOTE | 2019-02-07 09:12 | RHP ---
PATIENT: ABEL MARRERO MEDICAL RECORD: [id number] ACCOUNT: [id number] LOCATION:[id number] : [birth year] ADMISSION DATE: 01/29/19 REHABILITATION HISTORY AND PHYSICAL EXAMINATION POST ADMISSION PHYSICIAN EXAMINATION DATE OF ADMISSION: 01/29/2019 ADMITTING DIAGNOSIS: Acute coronary artery syndrome and acute anterior myocardial infarction with cardiogenic shock. HISTORY OF PRESENT ILLNESS: The patient is a 73-year-old gentleman who presented to the ED on 01/24/2019 after he was awakened with acute onset of crushing substernal chest discomfort, got a history of coronary artery disease in the past. His last coronary catheterization was in November of 2017. He had EKG changes noted. His CK was elevated. His troponin was 77. Continue to have chest discomfort and was taken to the labor expediter as an emergency for coronary angiography on 01/24/2019. He had successful percutaneous transluminal coronary angioplasty with stent of the left anterior descending and right coronary artery, both going from 90% to 100% initially, down to 0% residual. He is progressively slowly with PT, continues to be dyspneic with any exertion secondary to cardiogenic shock. He is requiring some supplemental O2. He is on telemetry, has got weakness, deconditioning, debility, impaired mobility, gait disturbance, and exercise intolerance. He has a high fall risk and has self-care deficits. These are all the barriers for his discharge to home safely at that time. He lives at home with his , was independent with his mobility with ADLs, currently set up for mod assist with ADLs and mod assist with mobility. He and his plan for him to return home at his prior level of functioning or better if possible. COMORBIDITIES: Acute anterolateral myocardial infarction with cardiogenic shock, acute coronary syndrome, abnormal EKG, coronary artery disease, hypotension, hyponatremia, PTCA with stent, dyspnea on exertion, shortness of breath, deconditioning, and debility. PAST MEDICAL HISTORY: Significant for hypertension, rgd-[id number]-[id number] diabetes, angioplasty, coronary artery disease, asbestos exposure, acid reflux, history of tobacco use, BPH, and UTI. PAST SURGICAL HISTORY: Includes gallbladder surgery, knee surgery, colon surgery, and stents. ALLERGIES: PENICILLIN AND SULFA. CURRENT MEDICATIONS: Include Flomax 0.4 mg daily, Plavix 75 mg daily, aspirin 81 mg daily, amiodarone 200 mg daily, metformin 1000 mg b.i.d. with meals, carvedilol 6.25 mg b.i.d. with meals, Protonix 40 mg b.i.d., Pravachol 20 mg at bedtime, furosemide 40 mg b.i.d., MiraLax 17 g daily in 8 ounce water daily, ipratropium bromide or Atrovent updrafts as needed, and lorazepam 0.5 mg t.i.d. HABITS: Does have a history of tobacco use. FAMILY HISTORY: Noncontributory. SOCIAL HISTORY: The patient hopes to return back home and get back to his prior HISTORY AND PHYSICAL [id number] ABEL MARRERO level of functioning. REVIEW OF SYSTEMS: GENERAL: Does complain of some weakness and fatigue. HEENT: Denies cold, cough, or congestion. CARDIOVASCULAR: Denies any chest pain. LUNGS: Does complain of some shortness of breath with exertion. PHYSICAL EXAMINATION: VITAL SIGNS: Stable. He is afebrile. GENERAL: An obese gentleman in no acute distress, alert upon exam. HEENT: Normocephalic and atraumatic. Mucosa moist. NECK: Supple. No lymphadenopathy. LUNGS: Clear at this time. No wheezing, rhonchi or rales. HEART: Regular rate and rhythm. No murmurs, rubs or gallops. ABDOMEN: Soft, benign, and nondistended. Positive bowel sounds times 4. EXTREMITIES: No clubbing, cyanosis or edema. NEUROLOGIC: He is mainly intact. He does have 3/5 strength in his proximal muscles of his thighs. LABORATORY DATA: White count is 13.9, H&H of 13 and 43, and platelet count is 296. His sodium is 141, potassium 4.4, BUN and creatinine of 21 and 1.0, and blood sugar is noted to be 78. ASSESSMENT: This 73-year-old gentleman who was admitted to the rehab with a working diagnosis of cardiogenic shock, status post myocardial infarction and stent placement. The patient has potential to make improvement. We instituted the following multidisciplinary therapies including, but not limited to physical, occupational, respiratory, speech, nutritional services, prosthetics and orthotics. Given his complex medical condition and risk for more complications, rehabilitation services cannot be provided at a low level of care such as skilled nurse facility. PLAN: 1. Admit to [facility] for intensive inpatient therapy to include the following disciplines: A. Physical therapy to improve gait, all transfer skills and bed mobility to a modified independent level. B. Occupational therapy to improve activities of daily living to a modified independent level. C. Case management to assist with discharge planning and placement options. D. Nutrition to assist with nutritional needs. E. Rehabilitation nursing to assist in monitoring with the patient's underlying medical conditions and to assist with any type of bowel or bladder management. 2. The patient's current medication and medical care will be continued. 3. The patient will be placed on standard fall precautions. 4. The patient's estimated length of stay is approximately 7-10 days. 5. We will discuss this patient during care team staff meeting this week. We will go ahead and continue on home medications to make sure he does not miss any doses of his Plavix, status post stent placement and see again in the a.m. TRANSINT:[id number] Voice Confirmation ID: [id number] DOCUMENT ID: [id number] HISTORY AND PHYSICAL [id number] ABEL MARRERO notes whether there has been none or any medical/functional change since admission: - No change since preadmission screen. AMAURI attests patient continues to be appropriate for IRF: - Continues to be appropriate. AIDEE VASQUEZ MD at 0912 CC: [id number] DICTATION DATE: 01/30/19822 GRAIN SHOVELER: 01/30/19912 DIS IN 01/31/19 [address] [place] [address]
== END 2019-01-31 04:56 ==
LOC: D.REHAB 17:49
PROVIDERS: ADMIT Emergency Medicine; ATTEND Emergency Medicine
PROC: 0BH17EZ Insertion of Endotracheal Airway into Trachea, Via Natural or Artificial Opening (ICD-10-PCS; principal; 2019-01-31)
DX: R57.0 Cardiogenic shock (principal); I21.09 ST elevation (STEMI) myocardial infarction involving other coronary artery of anterior wall; E87.1 Hypo-osmolality and hyponatremia; I24.9 Acute ischemic heart disease, unspecified; R94.31 Abnormal electrocardiogram [ECG] [EKG]; I25.10 Atherosclerotic heart disease of native coronary artery without angina pectoris; I95.9 Hypotension, unspecified; R06.00 Dyspnea, unspecified; R06.02 Shortness of breath; R53.81 Other malaise; E11.9 Type 2 diabetes mellitus without complications; K21.9 Gastro-esophageal reflux disease without esophagitis; I10 Essential (primary) hypertension